=== PATIENT | female | born 1980 | race Asian ===

== ENCOUNTER 2020-05-02 10:02 | Inpatient (IN) | payer MEDICAID ==
[~2020-05-02] VITALS: Ht 142.2 cm; Wt 40.0 kg
[2020-05-02] MEDS ORDERED: ACETAMINOPHEN 500 MG TAB PO ONE (10:15)
[2020-05-02] MEDS ORDERED: SODIUM CHLORIDE 0.9% 1,000 ML IV ONE ×4 (10:30→18:00)
[2020-05-02 10:56] LABS: Urine Bacteria FEW /hpf (None Seen); Urine Blood TRACE /uL (Negative); Urine Mucus FEW (None Seen); Urine WBC 112 /hpf (0 - 5)
[2020-05-02 11:23] LABS: Albumin 2.6 g/dL (3.4-5.0); Calcium 7.3 mg/dL (8.5-10.1)
[2020-05-02 11:26] LABS: Basophils # (auto) 0 10 ^3/uL (0-0.2); Basophils % (auto) 0.2 % (0.0-2.0); Eosinophils # (auto) 0 10 ^3/uL (0-0.8); Hematocrit 36.2 % (36.0-46.0); Hemoglobin 12.4 g/dL (12.2-16.2); Lymphocytes # (auto) 0.4 10 ^3/uL (0.4-5.4); Lymphocytes % (auto) 3.3 % (10.0-50.0); Mean Corpuscular Hemoglobin 31.9 pg (28.0-32.0); Mean Corpuscular Hgb Conc. 34.2 g/dL (32.0-36.0); Mean Corpuscular Volume 93.1 fL (80.0-100.0); Monocytes % (auto) 9.9 % (0.0-12.0); Neutrophils # (auto) 9.1 10 ^3/uL (1.6-8.6); Neutrophils % (auto) 86.6 % (37.0-80.0); Platelet Count (auto) 110 10^3/uL (140-450); Red Blood Cells 3.89 10^6/uL (4.0-5.20); Red Cell Distribution Width 12.2 % (11.8-14.3); White Blood Cell 10.5 10^3/uL (4.4-10.8)
[2020-05-02 11:27] LABS: BUN/Creatinine Ratio 15.8; Bilirubin, Total 1.1 mg/dL (0.2-1.0); Total Protein 6.9 g/dL (6.4-8.2)
[2020-05-02 11:30] LABS: Potassium 2.9 mmol/L (3.5-5.1)
[2020-05-02] MEDS ORDERED: KETOROLAC TROMETH 30 MG/ML 1ML VIAL IV ONE (12:00)
[2020-05-02] MEDS ORDERED: cefTRIAXone 1GM/50ML D5W 50 ML IV ONE (12:00)
[2020-05-02] MEDS ORDERED: POTASSIUM CHLORIDE 20 MEQ, LIDOCAINE 1% (LOCAL ANESTH.) 2 ML in SODIUM CHL 0.9% 100 ML IV ONE (12:00)
[2020-05-02] MEDS ORDERED: MORPHINE SULF INJ 2 MG/ML SYRINGE 1ML IV PRN (18:00)
[2020-05-02] MEDS ORDERED: NITROGLYCERIN 0.4 MG SL TAB SL PRN (18:00)
[2020-05-02] MEDS: ONDANSETRON HCL 4 MG/2 ML VIAL IV PRN (18:28)
[2020-05-02] MEDS: MORPHINE SULF INJ 2 MG/ML SYRINGE 1ML IV PRN (18:28)
[2020-05-02] MEDS: levoFLOXacin 500MG 100 ML IV SCH (18:28)
[2020-05-02] MEDS ORDERED: POTASSIUM CHL 20MEQ/100ML 100 ML IV ONE (23:00)
[2020-05-02] MEDS: HYDROcodone-ACET 5/325MG TAB PO PRN (23:53)
[2020-05-03] MEDS: MORPHINE SULF INJ 2 MG/ML SYRINGE 1ML IV PRN (01:03)
[2020-05-03] MEDS: ONDANSETRON HCL 4 MG/2 ML VIAL IV PRN (01:03)
[2020-05-03] MEDS ORDERED: SODIUM CHLORIDE 0.9% 1,000 ML IV ONE (06:00)
[2020-05-03 07:06] LABS: Potassium 3.6 mmol/L (3.5-5.1)
[2020-05-03 07:13] LABS: Albumin 2.2 g/dL (3.4-5.0); BUN/Creatinine Ratio 14.8; Bilirubin, Total 0.7 mg/dL (0.2-1.0); Calcium 7.1 mg/dL (8.5-10.1); Total Protein 5.9 g/dL (6.4-8.2)
[2020-05-03] MEDS: ACETAMINOPHEN 325 MG TAB PO PRN ×2 (09:25→14:28)
[2020-05-03] MEDS: levoFLOXacin 500MG 100 ML IV SCH (10:04)
[2020-05-03 18:47] VITALS: BP 109/72
[2020-05-03] MEDS ORDERED: LEVO500T31 PO (19:44)
[2020-05-03] MEDS: HYDROcodone-ACET 5/325MG TAB PO PRN (19:50)
[2020-05-03 21:46] VITALS: BP 104/64
[2020-05-04 05:00] VITALS: BP 110/87
[2020-05-04] MEDS: HYDROcodone-ACET 5/325MG TAB PO PRN (06:20)
[2020-05-04 08:00] VITALS: BP 102/61
[2020-05-04 09:00] VITALS: BP 102/61
[2020-05-04] MEDS: levoFLOXacin 500MG 100 ML IV SCH (09:53)
[2020-05-04 11:05] VITALS: BP 102/61
== END 2020-05-04 12:38 | disposition home or self-care (01) | DRG 463 ==
LOC: ER 10:02 → TELE 18:02 → TELE-CENTR 05-03 18:42
PROVIDERS: ADMIT Internal Medicine; ATTEND Internal Medicine
DX: N10 Acute pyelonephritis (principal); E87.6 Hypokalemia; Z20.822 Contact with and (suspected) exposure to COVID-19; Z87.891 Personal history of nicotine dependence; I87.8 Other specified disorders of veins
CPT/HCPCS: 36415; 71045; 74176; 80053; 81001; 81025; 82962; 85025; 87040; 87086; 87426; 96361; 96365; 96375; G0378; J0696; J1885; J1956; J2001; J2405; J3480

== ENCOUNTER → 2022-08-06 | Emergency (ER) | payer MEDICAID ==
[~2022-08-06] MED LIST: LEVO500T31 PO; NAPR-746 PO
== END | disposition left against medical advice (07) ==
LOC: ER 21:48
DX: N93.9 Abnormal uterine and vaginal bleeding, unspecified (principal); Z53.21 Procedure and treatment not carried out due to patient leaving prior to being seen by health care provider

== ENCOUNTER 2022-08-07 06:18 | Emergency (ER) | payer MEDICAID ==
[~2022-08-07] VITALS: Ht 152.4 cm; Wt 43.4 kg
[~2022-08-07 06:18] MED LIST changes: -NAPR-746 PO
[2022-08-07 07:02] LABS: Basophils # (auto) 0.1 10 ^3/uL (0-0.2); Basophils % (auto) 1.1 % (0.0-2.0); Eosinophils # (auto) 0.5 10 ^3/uL (0-0.8); Eosinophils % (auto) 7.8 % (0.0-7.0); Hematocrit 39.1 % (36.0-46.0); Hemoglobin 13.6 g/dL (12.2-16.2); Lymphocytes # (auto) 2.2 10 ^3/uL (0.4-5.4); Lymphocytes % (auto) 36.5 % (10.0-50.0); Mean Corpuscular Hemoglobin 32.1 pg (28.0-32.0); Mean Corpuscular Hgb Conc. 34.7 g/dL (32.0-36.0); Mean Corpuscular Volume 92.6 fL (80.0-100.0); Monocytes # (auto) 0.5 10 ^3/uL (0-1.3); Monocytes % (auto) 7.8 % (0.0-12.0); Neutrophils # (auto) 2.8 10 ^3/uL (1.6-8.6); Neutrophils % (auto) 46.8 % (37.0-80.0); Nucleated Red Blood Cells % 0.2 %; Red Blood Cells 4.22 10^6/uL (4.0-5.20); Red Cell Distribution Width 12.5 % (11.8-14.3); White Blood Cell 5.9 10^3/uL (4.4-10.8)
[2022-08-07 07:22] LABS: BUN/Creatinine Ratio 17.4 (10.0-20.0); Calcium 8.4 mg/dL (8.5-10.1); Potassium 3.8 mmol/L (3.5-5.1)
[2022-08-07 07:23] VITALS: BP 122/77
[2022-08-07 08:37] LABS: Urine Bacteria NONE SEEN /hpf (None Seen); Urine Blood 3+ /uL (Negative); Urine Specific Gravity 1.021 (1.001-1.035); Urine WBC 1 /hpf (0 - 5)
[2022-08-07] MEDS ORDERED: NAPR-746 PO (09:20)
== END 2022-08-07 09:25 | disposition home or self-care (01) ==
LOC: ER 06:18
DX: N83.201 Unspecified ovarian cyst, right side (principal); N92.0 Excessive and frequent menstruation with regular cycle
CPT/HCPCS: 36415; 76856; 80048; 81001; 81025; 85025

== ENCOUNTER 2023-10-31 11:46 | Inpatient (IN) | payer MEDICAID ==
[~2023-10-31] VITALS: Ht 152.4 cm; Wt 47.4 kg
[~2023-10-31 11:46] MED LIST changes: +CIPR-173 PO; +NAPR-746 PO
[2023-10-31 12:38] LABS: Basophils # (auto) 0 10 ^3/uL (0-0.2); Basophils % (auto) 0.2 % (0.0-2.0); Eosinophils # (auto) 0 10 ^3/uL (0-0.8); Eosinophils % (auto) 0.1 % (0.0-7.0); Hematocrit 41.1 % (36.0-46.0); Hemoglobin 14.2 g/dL (12.2-16.2); Lymphocytes # (auto) 0.7 10 ^3/uL (0.4-5.4); Lymphocytes % (auto) 8.3 % (10.0-50.0); Mean Corpuscular Hemoglobin 30.9 pg (28.0-32.0); Mean Corpuscular Hgb Conc. 34.5 g/dL (32.0-36.0); Mean Corpuscular Volume 89.6 fL (80.0-100.0); Monocytes # (auto) 0.9 10 ^3/uL (0-1.3); Monocytes % (auto) 11.3 % (0.0-12.0); Neutrophils # (auto) 6.5 10 ^3/uL (1.6-8.6); Neutrophils % (auto) 80.1 % (37.0-80.0); Platelet Count (auto) 165 10^3/uL (140-450); Red Blood Cells 4.59 10^6/uL (4.0-5.20); Red Cell Distribution Width 13.2 % (11.8-14.3); White Blood Cell 8.1 10^3/uL (4.4-10.8)
[2023-10-31 12:46] LABS: Chloride 104 mmol/L (98-107); Potassium 3.7 mmol/L (3.5-5.1); Sodium 136 mmol/L (136-145)
[2023-10-31 12:47] LABS: Anion Gap 6 (5-15); Calcium 9.2 mg/dL (8.7-10.4); Carbon Dioxide 26 mmol/L (20-30)
[2023-10-31 12:52] LABS: BUN/Creatinine Ratio 11.3 (10.0-20.0); Blood Urea Nitrogen 9 mg/dL (9-23); Glucose 91 mg/dL (74-106)
[2023-10-31] MEDS: ENOXAPARIN SOD 60 MG/0.6 ML SYRINGE SC ONE (13:00)
[2023-10-31 13:26] LABS: Urine Bacteria FEW /hpf (None Seen); Urine Blood TRACE /uL (Negative); Urine Clarity Clear (Clear); Urine Color Light-Yellow (Yellow); Urine Protein, UAD Negative (Negative); Urine Specific Gravity 1.006 (1.001-1.035); Urine Urobilinogen Normal (Negative); Urine WBC 2 /hpf (0 - 5); Urine pH 6.5 (5.0-9.0)
[2023-10-31] MEDS: IOHEXOL 350 MG/ML 100ML IJ ONE (13:39)
[2023-10-31 15:24] VITALS: PULSE 88; RESP 18; O2SAT 98
[2023-11-01] VITALS (7 sets, daily range): BP systolic 94–108; BP diastolic 55–67; PULSE 62–98; RESP 14–17; TEMP 98–98.8; O2SAT 94–100
[2023-11-01] MEDS ORDERED: ONDANSETRON HCL 4 MG/2 ML VIAL IV PRN (03:30)
[2023-11-01] MEDS ORDERED: HYDROcodone-ACET 5/325MG TAB PO PRN (03:30)
[2023-11-01] MEDS: PANTOPRAZOLE 40 MG TAB PO SCH (06:40)
[2023-11-01 06:58] LABS: Basophils # (auto) 0 10 ^3/uL (0-0.2); Basophils % (auto) 0.2 % (0.0-2.0); Eosinophils # (auto) 0 10 ^3/uL (0-0.8); Eosinophils % (auto) 0.1 % (0.0-7.0); Hematocrit 37.9 % (36.0-46.0); Hemoglobin 12.9 g/dL (12.2-16.2); Lymphocytes # (auto) 1.4 10 ^3/uL (0.4-5.4); Lymphocytes % (auto) 19.2 % (10.0-50.0); Mean Corpuscular Hemoglobin 30.7 pg (28.0-32.0); Mean Corpuscular Hgb Conc. 34.1 g/dL (32.0-36.0); Mean Corpuscular Volume 90.1 fL (80.0-100.0); Monocytes # (auto) 1.3 10 ^3/uL (0-1.3); Monocytes % (auto) 17.8 % (0.0-12.0); Neutrophils # (auto) 4.5 10 ^3/uL (1.6-8.6); Neutrophils % (auto) 62.7 % (37.0-80.0); Nucleated Red Blood Cells % 0.3 %; Platelet Count (auto) 150 10^3/uL (140-450); Red Cell Distribution Width 13.1 % (11.8-14.3); White Blood Cell 7.1 10^3/uL (4.4-10.8)
[2023-11-01 07:13] LABS: Alanine Aminotransferase 20 U/L (7-40); Albumin 4.1 g/dL (3.2-4.8); Alkaline Phosphatase 50 U/L (46-116); Anion Gap 7 (5-15); Blood Urea Nitrogen 10 mg/dL (9-23); Calcium 8.8 mg/dL (8.7-10.4); Carbon Dioxide 28 mmol/L (20-30); Chloride 102 mmol/L (98-107); Glucose 103 mg/dL (74-106); Potassium 3.8 mmol/L (3.5-5.1); Sodium 137 mmol/L (136-145)
[2023-11-01 07:14] LABS: Aspartate Aminotransferase 16 U/L (13-40); BUN/Creatinine Ratio 13.7 (10.0-20.0); Bilirubin, Total 0.9 mg/dL (0.2-1.0); Total Protein 7.5 g/dL (5.7-8.2)
[2023-11-01] MEDS: ACETAMINOPHEN 325 MG TAB PO PRN (17:53)
[2023-11-01 20:59] LABS: COVID19 ANTIGEN SOFIA FIA NEGATIVE (NEGATIVE)
[2023-11-02] VITALS (8 sets, daily range): BP systolic 94–112; BP diastolic 57–77; PULSE 62–83; RESP 16–18; TEMP 97.4–99.3; O2SAT 97–99
[2023-11-02 07:15] LABS: INR 1.03 (0.9-1.15); Prothrombin Time 10.9 sec (9.3-11.8)
[2023-11-02 07:23] LABS: Chloride 105 mmol/L (98-107); Potassium 3.8 mmol/L (3.5-5.1); Sodium 137 mmol/L (136-145)
[2023-11-02 07:24] LABS: Anion Gap 5 (5-15); Calcium 8.9 mg/dL (8.7-10.4); Carbon Dioxide 27 mmol/L (20-30)
[2023-11-02 07:29] LABS: BUN/Creatinine Ratio 14.3 (10.0-20.0); Blood Urea Nitrogen 10 mg/dL (9-23); Glucose 95 mg/dL (74-106)
[2023-11-03] VITALS (10 sets, daily range): BP systolic 90–114; BP diastolic 53–69; PULSE 56–80; RESP 16–18; TEMP 97.7–98.5; O2SAT 96–100
[2023-11-03 07:42] LABS: Basophils # (auto) 0 10 ^3/uL (0-0.2); Basophils % (auto) 0.4 % (0.0-2.0); Eosinophils # (auto) 0.1 10 ^3/uL (0-0.8); Eosinophils % (auto) 1.2 % (0.0-7.0); Hematocrit 39.6 % (36.0-46.0); Hemoglobin 13.5 g/dL (12.2-16.2); Lymphocytes # (auto) 1.2 10 ^3/uL (0.4-5.4); Lymphocytes % (auto) 26.7 % (10.0-50.0); Mean Corpuscular Hemoglobin 30.7 pg (28.0-32.0); Monocytes # (auto) 0.6 10 ^3/uL (0-1.3); Monocytes % (auto) 12.5 % (0.0-12.0); Neutrophils # (auto) 2.7 10 ^3/uL (1.6-8.6); Neutrophils % (auto) 59.2 % (37.0-80.0); Platelet Count (auto) 204 10^3/uL (140-450); Red Blood Cells 4.39 10^6/uL (4.0-5.20); Red Cell Distribution Width 13.1 % (11.8-14.3); White Blood Cell 4.6 10^3/uL (4.4-10.8)
[2023-11-03 07:58] LABS: Alanine Aminotransferase 23 U/L (7-40); Albumin 3.9 g/dL (3.2-4.8); Alkaline Phosphatase 50 U/L (46-116); Anion Gap 5 (5-15); BUN/Creatinine Ratio 10.8 (10.0-20.0); Blood Urea Nitrogen 8 mg/dL (9-23); Calcium 8.8 mg/dL (8.7-10.4); Carbon Dioxide 28 mmol/L (20-30); Chloride 104 mmol/L (98-107); Glucose 95 mg/dL (74-106); LDL Cholesterol 168 mg/dL (< 100); Magnesium 2.4 mg/dL (1.6-2.6); Potassium 3.6 mmol/L (3.5-5.1); Sodium 137 mmol/L (136-145); Total Protein 7.3 g/dL (5.7-8.2); Triglycerides 87 mg/dL (< 150)
[2023-11-03 07:59] LABS: Aspartate Aminotransferase 21 U/L (13-40); Bilirubin, Total 0.7 mg/dL (0.2-1.0); Cholesterol 208 mg/dL (< 200); HDL Cholesterol 33 mg/dL (40-59); Phosphorus 3.5 mg/dL (2.4-5.1)
[2023-11-03] MEDS ORDERED: SODIUM CHLORIDE LOCK 10 ML ONE (08:27)
[2023-11-03] MEDS: LIDOCAINE VISCOUS 2% 15ML UD ONE (14:21)
[2023-11-03] MEDS: diphenhdrAMINE HCL 50 MG/1 ML VL ONE (14:26)
[2023-11-03] MEDS: MIDAZOLAM HCL 5 MG/ML-1ML VIAL ONE (14:26)
[2023-11-03] MEDS: fentaNYL CITRATE 100 MCG/2 ML VL ONE (14:26)
[2023-11-03] MEDS: SUCRALFATE 1 GM TAB PO SCH (22:46)
[2023-11-04 01:00] VITALS: BP 102/60; PULSE 62; RESP 18; TEMP 97.9; O2SAT 98
[2023-11-04 05:00] VITALS: BP 95/56; PULSE 66; RESP 16; TEMP 98.4; O2SAT 95
[2023-11-04 07:12] LABS: Basophils # (auto) 0 10 ^3/uL (0-0.2); Basophils % (auto) 0.4 % (0.0-2.0); Eosinophils # (auto) 0.1 10 ^3/uL (0-0.8); Eosinophils % (auto) 1.4 % (0.0-7.0); Hematocrit 36.2 % (36.0-46.0); Hemoglobin 12.5 g/dL (12.2-16.2); Lymphocytes # (auto) 1.3 10 ^3/uL (0.4-5.4); Lymphocytes % (auto) 21.6 % (10.0-50.0); Mean Corpuscular Hemoglobin 30.6 pg (28.0-32.0); Mean Corpuscular Hgb Conc. 34.5 g/dL (32.0-36.0); Mean Corpuscular Volume 88.8 fL (80.0-100.0); Monocytes # (auto) 0.6 10 ^3/uL (0-1.3); Monocytes % (auto) 9.1 % (0.0-12.0); Neutrophils # (auto) 4.2 10 ^3/uL (1.6-8.6); Neutrophils % (auto) 67.5 % (37.0-80.0); Platelet Count (auto) 216 10^3/uL (140-450); Red Blood Cells 4.07 10^6/uL (4.0-5.20); Red Cell Distribution Width 12.9 % (11.8-14.3); White Blood Cell 6.2 10^3/uL (4.4-10.8)
[2023-11-04 07:23] LABS: Anion Gap 4 (5-15); Carbon Dioxide 27 mmol/L (20-30); Chloride 106 mmol/L (98-107); Potassium 3.9 mmol/L (3.5-5.1); Sodium 137 mmol/L (136-145)
[2023-11-04 07:24] LABS: Calcium 8.6 mg/dL (8.7-10.4)
[2023-11-04 07:29] LABS: BUN/Creatinine Ratio 10.3 (10.0-20.0); Blood Urea Nitrogen 7 mg/dL (9-23); Glucose 93 mg/dL (74-106)
[2023-11-04 08:00] VITALS: PULSE 68; RESP 16; O2SAT 99
[2023-11-04 09:00] VITALS: BP 104/70; PULSE 68; RESP 18; TEMP 98.4; O2SAT 99
[2023-11-04 12:33] VITALS: BP 104/70; PULSE 65; RESP 15; TEMP 36.9; O2SAT 98
[2023-11-04 12:48] VITALS: BP 94/62; PULSE 65; RESP 15; TEMP 97.8; O2SAT 98
[2023-11-04] MEDS: CALCIUM CARB 500 MG CHEW TAB PO ONE (12:50)
[2023-11-04] MEDS ORDERED: ACET-1882 PO (12:59)
[2023-11-04] MEDS ORDERED: PANT40T PO (12:59)
[2023-11-04] MEDS ORDERED: SUCR1TAB PO (12:59)
[2023-11-04] MEDS ORDERED: ERGO1CAP23 PO (18:23)
[2023-11-04] MEDS ORDERED: CALC0.25 PO (18:28)
== END 2023-11-04 14:15 | disposition home or self-care (01) | DRG 254 ==
LOC: ER 11:46 → OVERFLOW 11-01 03:30 → WEST WING 11-01 06:00
PROVIDERS: ADMIT Internal Medicine Pulmonary Disease; ATTEND Internal Medicine Pulmonary Disease
PROC: 0DB68ZX Excision of Stomach, Via Natural or Artificial Opening Endoscopic, Diagnostic (ICD-10-PCS; 2023-11-03)
PROC: 0DB48ZX Excision of Esophagogastric Junction, Via Natural or Artificial Opening Endoscopic, Diagnostic (ICD-10-PCS; 2023-11-03)
PROC: 0DB98ZX Excision of Duodenum, Via Natural or Artificial Opening Endoscopic, Diagnostic (ICD-10-PCS; principal; 2023-11-03 13:35)
DX: K44.9 Diaphragmatic hernia without obstruction or gangrene (principal); K22.10 Ulcer of esophagus without bleeding; K29.70 Gastritis, unspecified, without bleeding; E78.5 Hyperlipidemia, unspecified; Z79.899 Other long term (current) drug therapy
CPT/HCPCS: 36415; 71275; 74176; 76705; 80048; 80053; 80061; 81001; 83735; 84100; 84484; 84702; 85025; 85379; 85610; 86850; 86900; 86901; 87426; 93005; G0378; J2250

== ENCOUNTER 2024-07-08 13:51 | Inpatient (IN) | payer MEDICAID ==
[~2024-07-08] VITALS: Ht 152.4 cm; Wt 52.1 kg
[~2024-07-08 13:51] MED LIST changes: +ACET-1882 PO; +CALC0.25 PO; -CIPR-173 PO; +ERGO1CAP23 PO; -LEVO500T31 PO; -NAPR-746 PO; +PANT40T PO; +SUCR1TAB PO
[2024-07-08] MEDS ORDERED: cefTRIAXone 1GM/50ML D5W 50 ML IV ONE (14:00)
[2024-07-08 14:15] LABS: Basophils # (auto) 0 10 ^3/uL (0-0.2); Basophils % (auto) 0.9 % (0.0-2.0); Eosinophils # (auto) 0.1 10 ^3/uL (0-0.8); Eosinophils % (auto) 2.1 % (0.0-7.0); Hematocrit 26.1 % (36.0-46.0); Hemoglobin 7.7 g/dL (12.2-16.2); Lymphocytes % (auto) 39.1 % (10.0-50.0); Mean Corpuscular Hgb Conc. 29.7 g/dL (32.0-36.0); Mean Corpuscular Volume 60.8 fL (80.0-100.0); Monocytes # (auto) 0.2 10 ^3/uL (0-1.3); Monocytes % (auto) 8.2 % (0.0-12.0); Neutrophils # (auto) 1.3 10 ^3/uL (1.6-8.6); Neutrophils % (auto) 49.7 % (37.0-80.0); Nucleated Red Blood Cells % 0.1 %; Platelet Count (auto) 188 10^3/uL (140-450); White Blood Cell 2.6 10^3/uL (4.4-10.8)
--- NOTE | 2024-07-08 14:26 | ED.PDOC ---
GI ASSESSMENT HPI Comments 43-year-old female is brought in by ambulance with son for complaint of syncope, constant, diffuse abdominal pain, nausea, and diarrhea. Patient is a poor historian and a Swedish speaker. Per son, who is translating on patient's behalf, patient is stated to have had yellow diarrhea for one-week and remaining GI symptoms for the past few days, with most recent onset taking place, while at a restaurant, this afternoon. She then had a syncopal episode that was witnessed by family after going home, when she stood up and sat back down in her seat. Per EMS, patient vomited in the ambulance and was given IV Zofran. She has not vomited and since Denies any blood in vomitus, diarrhea, Vitals on scene: blood glucose of 173, blood pressure of 135/74, pulse rate of 68, respiratory rate of 13, and SpO2 of 100% room air Vitals upon arrival to ED: Temperature of 95.8 F, blood pressure 136/73, pulse rate of 65, respiratory rate of 12, and SpO2 of 100% room air. ORTEGA: n/v/syncope, abd pain diarrhea HPI: Poor Historian. Past Medical History: Denies Past Surgical History: Denies REVIEW OF SYSTEMS: CONSTITUTIONAL: Denies acute: fever, diaphoresis, chills, HEAD: Denies acute: headache, photophobia Eyes: Denies acute: Double vision, vision loss, eye pain, eye discharge. EARS: Denies acute: tinnitus, hearing loss, ear discharge, ear pain, THROAT: Denies acute: sore throat, swelling, difficulty swallowing , pain with sw allowing, change in voice. NECK: Denies acute: neck pain, neck swelling, stiff neck. HEART: Denies acute : chest pain, palpitations, LUNGS: Denies acute: SOB, wheezing, cough, hemoptysis ABDOMEN: Denies acute: melena , hematemesis, hematochezia SKIN: Denies acute: rash, redness, lesions, itchiness. EXTREMITIES: Denies acute: calf pain, numbness, tingling, weakness, denies pain in extremity. Denies acute: Low back pain. Neuro: Denies acute: focal neurological deficit, motor or sensory focal neurological deficit, tremors, seizure like activity, confusion, , change in mental status, loss of bowel or bladder function, cauda equina like symptoms. : Denies acute: dysuria, hematuria, flank pain, increasing urinary frequency PSYCH: Denies acute: hallucination, suicidal ideation, homicidal ideation. FEMALE: Denies acute: abnormal vaginal bleeding, foul odor, unusual discharge. PHYSICAL EXAM: General: ----mild----acute distress, awake and alert. Head: normocephalic, atraumatic. Neck: supple, trachea is midline, no swelling. Throat: Normal phonation. Eyes:, no erythema, no purulent discharge, no proptosis, no icterus. Heart: regular rate, regular rhythm, no significant murmur appreciated. Lungs: no apparent respiratory distress, Able to speak in full sentences. No wheezing, no rhonchi, no crackles. No stridors Clear to auscultation bilaterally. Abdomen: Nonspecific lower abdominal tender to palpation, non distended, soft, no guarding, no rebound, + bowel sounds. Neuro: Awake, Alert, oriented to name, self, situation, follows commands GCS=15. Speech is normal. Skin: no petechia, no purpura, no cyanosis, non-pale, not jaundice. Lower extremities: --no - Pitting edema no deformity, no focal swelling, no calf TTP. Makes eye contact. moves all four extremities. Face: no apparent facial droop. ED COURSE: Chief Complaint: Syncope Time Seen by MD: 13:52 Reviewed Notes: Nurses Notes, Allergies Allergies: Coded Allergies: NO KNOWN ALLERGIES (Unverified , 05/12/18) Home Meds Active Scripts Calcitriol (Calcitriol) 0.25 Mcg Cap, 1 CAP PO DAILY for 30 Days, #30 CAP 5 Refills Prov:REBECCAREBECCACLAUDY SEGAL RESIDENT 11/04/23 Ergocalciferol (VITAMIN D 26436 UNIT) 50,000 [place], [address] UNIT PO QWEEKLY for 30 Days, #10 CAP Prov:MEGHANAALICIAPITERCLAUDY RESIDENT 11/04/23 Sucralfate (Sucralfate) 1 Gm Tab, 1 GM PO BID for 30 Days, #60 TAB Prov:CLAUDY BRYANT RESIDENT 11/04/23 Pantoprazole Sodium Sesquihydr (Pantoprazole Sodium) 40 Mg Tab, 40 MG PO DAILY@0600 for 30 Days, #30 TAB Prov:CLAUDY BRYANT RESIDENT 11/04/23 Acetaminophen (Acetaminophen) 325 Mg Tab, 650 MG PO Q6HP PRN for 10 Days, #80 TAB Prov:CLAUDY BRYANT RESIDENT 11/04/23 Information Source: Patient, Relative Past Medical History PAST MEDICAL HISTORY: Denies Surgical History: Denies all surgeries FURNACE UTILITY OPERATOR History: No Pertinent FURNACE UTILITY OPERATOR History Family History Family History: Reviewed,noncontributory to illness Social History Smoker: Non-Smoker Alcohol: Denies ETOH Use Drugs: Denies Drug Use Lives In: Home Was a procedure done? Was a procedure done?: No GI differential Dx Differential Diagnosis: Other (DDX include Diverticulitis, colitis, gastroenteritis, acute abdomen, SBO, enteritis, constipation, volvulus, appendicitis, Gallbladder disease, choledocolithiasis, ascending cholangitis, pancreatitis, intraAbdominal mass/neoplasm, hepatitis, UTI, pylonephritis, kidney stone, aneurysm, dissection, Inflammatory bowel disease, gastroparesis, ischemic bowel, ovarian torsion, ovarian cyst/mass, tubo-ovarian abscess, , ectopic , PID, STD.) X-Ray, Labs, Meds, VS Vital Signs Date Time Temp Pulse Resp B/P (MAP) Pulse Ox O2 Delivery O2 Flow Rate FiO2 07/08/24 20:50 98.5 60 14 115/38 (63) 100 98.5 07/08/24 16:06 97.9 65 18 109/57 (74) 94 97.9 07/08/24 16:01 65 18 94 Room Air* 0 21 Lab Test 07/08/24 18:59 07/08/24 17:20 07/08/24 16:00 07/08/24 15:09 Range/Units Hemoglobin 7.7 L 12.2-16.2 g/dL Hematocrit 26.7 L 36.0-46.0 % Troponin I High Sensitivity < 3 L < 3 L </=34 ng/L Urine Color Light-yellow Yellow Urine Clarity Clear Clear Urine pH 6.0 5.0-9.0 Urine Specific Morris 1.019 1.001-1.035 Urine Protein Negative Negative Urine Ketones Negative Negative Urine Blood 2+ H Negative /uL Urine Nitrite Negative Negative Urine Bilirubin Negative Negative Urine Urobilinogen Normal Negative mg/dL Urine Leukocyte Esterase Negative Negative /uL Urine RBC 2 0 - 4 /hpf Urine Microscopic WBC 2 0-5 /HPF Urine Squamous Epithelial Cells Few <5 /hpf Urine Bacteria None seen None Seen /hpf Urine Mucus Few None Seen Urine Glucose 3+ H Normal mg/dL Urine Test Negative Negative Test 07/08/24 14:06 Range/Units White Blood Count 2.6 L 4.4-10.8 10^3/uL Red Blood Count 4.30 4.0-5.20 10^6/uL Hemoglobin 7.7 L 12.2-16.2 g/dL Hematocrit 26.1 L 36.0-46.0 % Mean Corpuscular Volume 60.8 L 80.0-100.0 fL Mean Corpuscular Hemoglobin 18.0 L 28.0-32.0 pg Mean Corpuscular Hemoglobin Concent 29.7 L 32.0-36.0 g/dL Red Cell Distribution Width 19.0 H 11.8-14.3 % Platelet Count 188 140-450 10^3/uL Mean Platelet Volume 8.4 6.9-10.8 fL Neutrophils (%) (Auto) 49.7 37.0-80.0 % Lymphocytes (%) (Auto) 39.1 10.0-50.0 % Monocytes (%) (Auto) 8.2 0.0-12.0 % Eosinophils (%) (Auto) 2.1 0.0-7.0 % Basophils (%) (Auto) 0.9 0.0-2.0 % Neutrophils # (Auto) 1.3 L 1.6-8.6 10 ^3/uL Lymphocytes # (Auto) 1.0 0.4-5.4 10 ^3/uL Monocytes # (Auto) 0.2 0-1.3 10 ^3/uL Eosinophils # (Auto) 0.1 0-0.8 10 ^3/uL Basophils # (Auto) 0 0-0.2 10 ^3/uL Nucleated Red Blood Cells 0.1 % Sodium Level 141 136-145 mmol/L Potassium Level 3.3 L 3.5-5.1 mmol/L Chloride Level 108 H 98-107 mmol/L Carbon Dioxide Level 25 20-31 mmol/L Anion Gap 8 5-15 Blood Urea Nitrogen 12 9-23 mg/dL Creatinine 0.87 0.550-1.02 mg/dL Glomerular Filtration Rate Calc 84 >90 mL/min BUN/Creatinine Ratio 13.8 10.0-20.0 Serum Glucose 208 H 74-106 mg/dL Hemoglobin A1c 5.4 <5.7 % A1C Lactic Acid Level 1.9 0.4-2.0 mmol/L Calcium Level 8.7 8.7-10.4 mg/dL Magnesium Level 2.2 1.6-2.6 mg/dL Total Bilirubin 0.4 0.2-1.0 mg/dL Aspartate Amino Transferase (AST) 12 L 13-40 U/L Alanine Aminotransferase (ALT) 13 7-40 U/L Alkaline Phosphatase 45 L 46-116 U/L Troponin I High Sensitivity < 3 L </=34 ng/L Total Protein 7.1 5.7-8.2 g/dL Albumin 4.3 3.2-4.8 g/dL Lipase 78 H 12-53 U/L Current Medications Medications (Trade) Dose Ordered Sig/Noris Route Start Time Stop Time Status Last Admin Sodium Chloride 1,000 ml @ 1,000 mls/hr Q1H ONCE IV 07/08/24 14:00 07/08/24 14:59 DC 07/08/24 15:53 Ondansetron HCl (Zofran) 8 mg ONCE ONCE IV 07/08/24 14:00 07/08/24 14:01 DC 07/08/24 15:54 Metronidazole 100 ml @ 100 mls/hr ONCE ONCE IV 07/08/24 14:30 07/08/24 15:29 DC 07/08/24 15:54 [place] [address] Ph: [phone] DIAGNOSTIC IMAGING Diagnostic Imaging Report : [id number] Signed PATIENT: LEVY ORTEGA ACCT: [id number] UNIT: [id number] : 1980 LOC: ER ROOM / BED: / AGE / SEX: 43 / F ADM STATUS: REG ER SERVICE [id number] ORDERING PHYSICIAN: DARRYL KHAN DO PROCEDURE(s): ABPL - CT AB PEL WO CON-NO ORAL OR IV REASON: n/v/syncope abd pain ORDER NUMBER(s): [id number], ACCESSION NUMBER(s): [id number] Exam: CT CT AB PEL WO CON-NO ORAL OR IV History: n/v/syncope abd pain Comparison Study: None available at time of dictation. TECHNIQUE: Multidetector CT of the abdomen was performed from lung bases to pubic symphysis. Imaging was performed without IV contrast. Axial, coronal and sagittal multiplanar reformats were obtained from the axial data set by the technologist. Radiation Dose Information: CT Dose: CTDI volume is 5.07 mGy. Dose-length product is 247.05 mGy*cm FINDINGS: Evaluation of solid organs is limited due to lack of intravenous contrast use. Findings: Lung Bases: No acute or significant lung base finding. Normal heart size. No pleural or pericardial effusion. Liver: The liver is normal in size. No focal lesions. Gallbladder and Biliary Tree: Unremarkable Spleen: Unremarkable Pancreas: The pancreas is grossly normal in appearance. Adrenal Glands: Unremarkable Kidneys: Kidneys are grossly normal without calculi or hydronephrosis. Bladder: Grossly unremarkable for degree of distention. Bowel: The stomach is grossly normal in appearance. Small bowel and colon are normal in caliber and distribution. The appendix is not visualized; however, no secondary findings of acute appendicitis identified. Ascites: Absent Lymphadenopathy: No mesenteric, retroperitoneal or periportal lymphadenopathy. Abdominal Wall and Mesentery: Unremarkable. Vasculature: The visualized abdominal aorta is normal in size and caliber. Evaluation of abdominal and pelvic vessels is limited due to lack of intravenous contrast. Pelvic Organs: Uterus measures 11.5 by 6.4 by 7.7 cm. Musculoskeletal: No aggressive focal bony lesions, acute fractures or dislocation. Soft tissues: Unremarkable IMPRESSION: 1. No findings of bowel obstruction 2. No calcified gallstones 3. No nephrolithiasis or hydronephrosis. 4. Prominent uterus measuring 11.5 by 6.4 x 7.7 cm. Radiation optimization: All CT scans at this facility use at least one of these dose optimization techniques: automated exposure control mA and/or kV adjustment per patient size (includes targeted exams where dose is matched to clinical indication) or iterative reconstruction. ATED BY: MARTHA CHRISTINA Jr., DO DICTATED DATE/TIME: 07/08/24 1720 SIGNED BY: MARTHA CHRISTINA Jr., DO SIGNED DATE/TIME: 07/08/24 1720 CC: Time of 1ST Reevaluation: 14:30 Reevaluation 1ST: Unchanged Time of 2ND Reevaluation: 21:56 Reevaluation 2ND: Improved Patient Education/Counseling: Diagnosis, Treatment Family Education/Counseling: Diagnosis, Treatment Comments Patient presented with the above HPI.---syncope/abdominal pain/diarrhea---workup was initiated. patient was found with the above mentioned diagnosis. the following medications were ordered: please refer to order lists of meds and tests obtained by myself Dr. Khan. Patient ED course and VS have been stabilized. Patient has been reassessed in [facility] ED and remained in a stable condition. Pertinent incidental findings were discussed with the patient and/or family. Patient/family voices understanding and is agreeable with plan. Patient has been observed in the ED adequate length of time to insure improvement/stability. Escalation of care considered: Consideration of escalation to observation or admission Stool studies are still pending. Antibiotics were initiated for history of diarrhea and suspected associated dehydration possible infectious diarrhea. Patient was ADMITTED to the medicine team for further evaluation and treatment of their presentation. All the reports of any imaging studies that were ordered by myself were reviewed by myself. Departure 1 Departure Time of Disposition: 18:49 Impression: Primary Impression: Syncope and collapse Additional Impressions: Abdominal pain Diarrhea Symptomatic anemia Disposition: ADMITTED INPATIENT Admit to: Tele Condition: Guarded Discharged With: Self Critical Care Note Critical Care Time?: Yes (35 min-critical care time only) I personally scribed for DARRYL KHAN DO ([email or web address]) on 07/08/24 at 14:26. Electronically submitted by Dave Uriarte ([email or web address]). I personally scribed for DARRYL KHAN DO ([email or web address]) on 07/08/24 at 15:30. Electronically submitted by Dave Uriarte ([email or web address]). I personally scribed for DARRYL KHAN DO ([email or web address]) on 07/08/24 at 15:44. Electronically submitted by Dave Uriarte ([email or web address]). I personally scribed for DARRYL KHAN DO ([email or web address]) on 07/08/24 at 16:31. Electronically submitted by Dave Uriarte ([email or web address]). I personally scribed for DARRYL KHAN DO ([email or web address]) on 07/08/24 at 18:39. Electronically submitted by Dave Uriarte ([email or web address]). DARRYL KHAN DO July 08, 2024 14:26
[2024-07-08 14:32] LABS: Alanine Aminotransferase 13 U/L (7-40); Albumin 4.3 g/dL (3.2-4.8); Anion Gap 8 (5-15); BUN/Creatinine Ratio 13.8 (10.0-20.0); Blood Urea Nitrogen 12 mg/dL (9-23); Carbon Dioxide 25 mmol/L (20-31); Magnesium 2.2 mg/dL (1.6-2.6); Sodium 141 mmol/L (136-145); Total Protein 7.1 g/dL (5.7-8.2)
[2024-07-08 14:33] LABS: Bilirubin, Total 0.4 mg/dL (0.2-1.0)
[2024-07-08 14:34] LABS: Alkaline Phosphatase 45 U/L (46-116); Aspartate Aminotransferase 12 U/L (13-40); Calcium 8.7 mg/dL (8.7-10.4); Chloride 108 mmol/L (98-107); Glucose 208 mg/dL (74-106); Lipase 78 U/L (12-53); Potassium 3.3 mmol/L (3.5-5.1)
[2024-07-08] MEDS: SODIUM CHLORIDE 0.9% 1,000 ML IV ONE (15:53)
[2024-07-08] MEDS: ONDANSETRON HCL 4 MG/2 ML VIAL IV ONE (15:54)
[2024-07-08] MEDS: metroNIDAZOLE 500MG/100ML 100 ML IV ONE (15:54)
[2024-07-08 16:01] VITALS: PULSE 65; RESP 18; O2SAT 94
[2024-07-08 16:28] LABS: Urine Bacteria None Seen /hpf (None Seen)
[2024-07-08 16:34] LABS: Urine Blood 2+ /uL (Negative); Urine Clarity Clear (Clear); Urine Color Light-Yellow (Yellow); Urine Mucus FEW (None Seen); Urine Protein, UAD Negative (Negative); Urine Specific Gravity 1.019 (1.001-1.035); Urine Squamous Epithelial Cell FEW /hpf (<5); Urine Urobilinogen Normal (Negative); Urine WBC 2 /HPF (0-5)
--- NOTE | 2024-07-08 17:23 | DVH ---
Exam: CT CT AB PEL WO CON-NO ORAL OR IV History: n/v/syncope abd pain Comparison Study: None available at time of dictation. TECHNIQUE: Multidetector CT of the abdomen was performed from lung bases to pubic symphysis. Imaging was performed without IV contrast. Axial, coronal and sagittal multiplanar reformats were obtained fr om the axial data set by the technologist. Radiation Dose Information: CT Dose: CTDI volume is 5.07 mGy. Dose-length product is 247.05 mGy*cm FINDINGS: Evaluation of solid organs is limited due to lack of intravenous contrast use. Findings: Lung Bases: No acute or significant lung base finding. Normal heart size. No pleural or pericardial effusion. Liver: The liver is normal in size. No focal lesions. Gallbladder and Biliary Tree: Unremarkable Spleen: Unremarkable Pancreas: The pancreas is grossly normal in appearance. Adrenal Glands: Unremarkable Kidneys: Kidneys are grossly normal without calculi or hydronephrosis. Bladder: Grossly unremarkable for degree of distention. Bowel: The stomach is grossly normal in appearance. Small bowel and colon are normal in caliber and d istribution. The appendix is not visualized; however, no secondary findings of acute appendicitis id entified. Ascites: Absent Lymphadenopathy: No mesenteric, retroperitoneal or periportal lymphadenopathy. Abdominal Wall and Mesentery: Unremarkable. Vasculature: The visualized abdominal aorta is normal in size and caliber. Evaluation of abdominal a nd pelvic vessels is limited due to lack of intravenous contrast. Pelvic Organs: Uterus measures 11.5 by 6.4 by 7.7 cm. Musculoskeletal: No aggressive focal bony lesions, acute fractures or dislocation. Soft tissues: Unremarkable IMPRESSION: 1. No findings of bowel obstruction 2. No calcified gallstones 3. No nephrolithiasis or hydronephrosis. 4. Prominent uterus measuring 11.5 by 6.4 x 7.7 cm. Radiation optimization: All CT scans at this facility use at least one of these dose optimization te chniques: automated exposure control mA and/or kV adjustment per patient size (includes targeted exa ms where dose is matched to clinical indication) or iterative reconstruction.
[2024-07-08 19:15] LABS: Hemoglobin 7.7 g/dL (12.2-16.2)
[2024-07-08 19:16] LABS: Hematocrit 26.7 % (36.0-46.0)
[2024-07-08] MEDS ORDERED: DOCUSATE SOD 100 MG CAP PO PRN (20:30)
[2024-07-08] MEDS ORDERED: HYDROcodone-ACET 5/325MG TAB PO PRN (20:30)
--- NOTE | 2024-07-08 21:29 | DVHHP2 ---
History of Present Illness Reason for Visit: Syncope and collapse History of Present Illness The patient is a 43-year-old female who denies past medical history presented to [facility] ED for evaluation of syncopal episode. Patient reports symptoms progressively get worse with diffuse abdominal pain, nausea, diarrhea, getting worse that prompted this visit. Patient is a poor historian and a [place] speaker.Per son, who is translating on patient's behalf, patient is stated to have had yellow diarrhea for one-week and remaining GI symptoms for the past few days, with most recent onset taking place, while at a restaurant, this afternoon. She then had a syncopal episode that was witnessed by family after going home, when she stood up and sat back down in her seat. Patient was seen and evaluated in the ED, laboratory data shows WBC 2.6, hemoglobin 7.7, hematocrit 26.1, platelets 188, sodium 141, potassium 3.3, BUN 12, creatinine 0.87, glucose 208, hemoglobin A1c 5.4, lipase 78, troponin < 3. Please see medication orders section in the computer. On my assessment, patient denied chest pain, no headache, no dizziness, no diaphoresis, no shortness of breath, no nausea or vomiting at this moment, no fever, no chills. Patient was admitted for further evaluation and medical management. Past Medical History Denies past medical history Past Surgical History Denies all surgeries Family History Reviewed, noncontributory to the management of this case. Past Social History The patient lives at home, denies smoking, alcohol or illicit drugs abuse. Review of Systems Constitutional: Yes: Weakness; No: Fever, Chills, Sweats, Malaise, Other Eyes: No: Pain, Vision change, Conjunctivae inflammation, Eyelid inflammation, Other, Redness Respiratory: No: Cough, Dry, Shortness of breath, SOB with excertion, Wheezing, Hemoptysis, Pleuritic Pain, Sputum, Wheezing, Other Cardiovascular: No: Chest Pain, Palpitations, Orthopnea, Paroxysmal Noc. Dyspnea, Edema, Lt Headedness, Other Gastrointestinal: Nausea, Abdominal Pain, Diarrhea; No: Vomiting, Constipation, Melena, Hematochezia, Other Genitourinary: No Dysuria, No Frequency, No Incontinence, No Hematuria, No Retention, No Other Musculoskeletal: No: other, neck pain, shoulder pain, arm pain, back pain, hand pain, leg pain, foot pain Skin: No: Rash, Lesions, Jaundice, Bruising, Other Neurological: No: Weakness, Numbness, Incoordination, Change in speech, Confusion, Seizures, Other Allergies: Coded Allergies: NO KNOWN ALLERGIES (Unverified , 05/12/18) Medications Current Medications Medications Dose Ordered Sig/Noris Route Start Time Stop Time Status Last Admin Dose Admin Ceftriaxone Sodium 50 ml @ 100 mls/hr DAILY@09 IV 07/09/24 09:00 UNV Pantoprazole Sodium 40 mg DAILY IV 07/09/24 10:00 UNV Sodium Chloride 10 ml Q8HR IV 07/08/24 22:00 UNV Acetaminophen/ Hydrocodone Bitart 1 tab Q4HP PRN PO 07/08/24 20:30 UNV Ondansetron HCl 4 mg Q4HP PRN IV 07/08/24 20:30 UNV Docusate Sodium 100 mg BIDPRN PRN PO 07/08/24 20:30 UNV Acetaminophen 650 mg Q6HP PRN PO 07/08/24 20:30 UNV Exam Vital Signs Vital Signs Date Time Temp Pulse Resp B/P (MAP) Pulse Ox O2 Delivery O2 Flow Rate FiO2 07/08/24 20:50 98.5 60 14 115/38 (63) 100 98.5 07/08/24 16:01 Room Air* 0 21 General Appearance: Alert, Oriented X3, Cooperative, No acute distress HEENT: Atraumatic, PERRLA, EOMI, Mucous membr. moist/pink Respiratory: Clear to auscultation, Normal air movement Cardiovascular: Regular rate, Normal S1, Normal S2, No murmurs Abdominal: Normal bowel sounds, Soft, No tenderness, No hepatospenomegaly, No masses Extremities: No clubbing, No cyanosis, No edema, Normal pulses, No tenderness/swelling Skin: No rashes, No breakdown, No significant lesion Neuro: Normal speech, Normal tone, Sensation intact, Cranial nerves 3-12 NL, Reflexes 2+, Other (Generalized weakness) Psych/Mental Status: Mental status NL, Mood NL Labs/Xrays Labs Test 07/08/24 18:59 07/08/24 17:20 07/08/24 16:00 07/08/24 14:06 Range/Units Hemoglobin 7.7 L 12.2-16.2 g/dL Hematocrit 26.7 L 36.0-46.0 % Troponin I High Sensitivity < 3 L </=34 ng/L Urine Color Light-yellow Yellow Urine Clarity Clear Clear Urine pH 6.0 5.0-9.0 Urine Specific [place] 1.019 1.001-1.035 Urine Protein Negative Negative Urine Ketones Negative Negative Urine Blood 2+ H Negative /uL Urine Nitrite Negative Negative Urine Bilirubin Negative Negative Urine Urobilinogen Normal Negative mg/dL Urine Leukocyte Esterase Negative Negative /uL Urine RBC 2 0 - 4 /hpf Urine Microscopic WBC 2 0-5 /HPF Urine Squamous Epithelial Cells Few <5 /hpf Urine Bacteria None seen None Seen /hpf Urine Mucus Few None Seen Urine Glucose 3+ H Normal mg/dL Urine Test Negative Negative White Blood Count 2.6 L 4.4-10.8 10^3/uL Red Blood Count 4.30 4.0-5.20 10^6/uL Mean Corpuscular Volume 60.8 L 80.0-100.0 fL Mean Corpuscular Hemoglobin 18.0 L 28.0-32.0 pg Mean Corpuscular Hemoglobin Concent 29.7 L 32.0-36.0 g/dL Red Cell Distribution Width 19.0 H 11.8-14.3 % Platelet Count 188 140-450 10^3/uL Mean Platelet Volume 8.4 6.9-10.8 fL Neutrophils (%) (Auto) 49.7 37.0-80.0 % Lymphocytes (%) (Auto) 39.1 10.0-50.0 % Monocytes (%) (Auto) 8.2 0.0-12.0 % Eosinophils (%) (Auto) 2.1 0.0-7.0 % Basophils (%) (Auto) 0.9 0.0-2.0 % Neutrophils # (Auto) 1.3 L 1.6-8.6 10 ^3/uL Lymphocytes # (Auto) 1.0 0.4-5.4 10 ^3/uL Monocytes # (Auto) 0.2 0-1.3 10 ^3/uL Eosinophils # (Auto) 0.1 0-0.8 10 ^3/uL Basophils # (Auto) 0 0-0.2 10 ^3/uL Nucleated Red Blood Cells 0.1 % Sodium Level 141 136-145 mmol/L Potassium Level 3.3 L 3.5-5.1 mmol/L Chloride Level 108 H 98-107 mmol/L Carbon Dioxide Level 25 20-31 mmol/L Anion Gap 8 5-15 Blood Urea Nitrogen 12 9-23 mg/dL Creatinine 0.87 0.550-1.02 mg/dL Glomerular Filtration Rate Calc 84 >90 mL/min BUN/Creatinine Ratio 13.8 10.0-20.0 Serum Glucose 208 H 74-106 mg/dL Hemoglobin A1c 5.4 <5.7 % A1C Lactic Acid Level 1.9 0.4-2.0 mmol/L Calcium Level 8.7 8.7-10.4 mg/dL Magnesium Level 2.2 1.6-2.6 mg/dL Total Bilirubin 0.4 0.2-1.0 mg/dL Aspartate Amino Transferase (AST) 12 L 13-40 U/L Alanine Aminotransferase (ALT) 13 7-40 U/L Alkaline Phosphatase 45 L 46-116 U/L Total Protein 7.1 5.7-8.2 g/dL Albumin 4.3 3.2-4.8 g/dL Lipase 78 H 12-53 U/L PATIENT: LEVY ORTEGA ACCT: [id number] UNIT: [id number] : 1980 LOC: ER ROOM / BED: / AGE / SEX: 43 / F ADM STATUS: REG ER SERVICE [id number] ORDERING PHYSICIAN: DARRYL KHAN DO PROCEDURE(s): ABPL - CT AB PEL WO CON-NO ORAL OR IV REASON: n/v/syncope abd pain ORDER NUMBER(s): [id number], ACCESSION NUMBER(s): [id number] Exam: CT CT AB PEL WO CON-NO ORAL OR IV History: n/v/syncope abd pain Comparison Study: None available at time of dictation. TECHNIQUE: Multidetector CT of the abdomen was performed from lung bases to pubic symphysis. Imaging was performed without IV contrast. Axial, coronal and sagittal multiplanar reformats were obtained from the axial data set by the technologist. Radiation Dose Information: CT Dose: CTDI volume is 5.07 mGy. Dose-length product is 247.05 mGy*cm FINDINGS: Evaluation of solid organs is limited due to lack of intravenous contrast use. Findings: Lung Bases: No acute or significant lung base finding. Normal heart size. No pleural or pericardial effusion. Liver: The liver is normal in size. No focal lesions. Gallbladder and Biliary Tree: Unremarkable Spleen: Unremarkable Pancreas: The pancreas is grossly normal in appearance. Adrenal Glands: Unremarkable Kidneys: Kidneys are grossly normal without calculi or hydronephrosis. Bladder: Grossly unremarkable for degree of distention. Bowel: The stomach is grossly normal in appearance. Small bowel and colon are normal in caliber and distribution. The appendix is not visualized; however, no secondary findings of acute appendicitis identified. Ascites: Absent Lymphadenopathy: No mesenteric, retroperitoneal or periportal lymphadenopathy. Abdominal Wall and Mesentery: Unremarkable. Vasculature: The visualized abdominal aorta is normal in size and caliber. Evaluation of abdominal and pelvic vessels is limited due to lack of intravenous contrast. Pelvic Organs: Uterus measures 11.5 by 6.4 by 7.7 cm. Musculoskeletal: No aggressive focal bony lesions, acute fractures or dislocation. Soft tissues: Unremarkable IMPRESSION: 1. No findings of bowel obstruction 2. No calcified gallstones 3. No nephrolithiasis or hydronephrosis. 4. Prominent uterus measuring 11.5 by 6.4 x 7.7 cm. Assessment/Plan Assessment/Plan Syncope and collapse Acute abdominal pain Diarrhea Hypokalemia Leukopenia Symptomatic anemia Plan 1. Admit to telemetry unit 2. Breathing treatment 3. Pain control management 4. IV antibiotic management 5. Management of fluids and electrolytes 6. Consultation for hospitalist 7. Diagnostic test chest x-ray 8. DVT prophylaxis on SCDs 9. Repeat labs CBC, CMP in a.m. 10. Home medication reviewed and reconciled 11. Continue with current medical management 12. Treatment plan discussed with patient and RN. Patient verbalized understanding. Plan discussed with: Patient, Other (RN) My Orders Orders - JAQUELIN CARUSO DNP Procedure Category Date Status Time Ceftriaxone 1gm/50ml PHA 07/09/24 Logged D5w (Rocephin) 09:00 Pantoprazole PHA 07/09/24 Logged (Protonix) 10:00 Potassium Er Tablet PHA 07/08/24 Logged (Klor-Con Tablet) 20:30 Allergies DINESH 07/08/24 In Process 20:30 Code Status CODE 07/08/24 Transmitted 20:30 Sodium Chloride Lock PHA 07/08/24 Logged (Saline Lock Ns) 22:00 Oxygen Per Hour RT 07/08/24 Transmitted 20:30 Hydrocodone-Acet PHA 07/08/24 Logged 5/325mg Tab ([place] 20:30 Ondansetron Hcl PHA 07/08/24 Logged (Zofran) 20:30 Docusate Sodium PHA 07/08/24 Logged Capsule (Colace 20:30 Complete Blood Count LAB 07/09/24 Verified 04:00 Comprehensive LAB 07/09/24 Verified Metabolic Panel 04:00 Cardiac DIET 07/09/24 Transmitted Diet-2gna,Lofat,Lochol Breakfast Condition: Serious DINESH 07/08/24 In Process 20:30 Acetaminophen Tablet PHA 07/08/24 Logged (Tylenol Tablet) 20:30 Bedrest With Bathroom DINESH 07/08/24 Verified Privileg 20:30 Sequential DINESH 07/08/24 Verified Compression Device Problem List: (1) Syncope and collapse (2) Symptomatic anemia (3) Diarrhea (4) Hypokalemia (5) Leukopenia (6) Acute abdominal pain Date of Service: July 08, 2024 Billing Provider: JAQUELIN CARUSO DNP Common Visit Codes: [id number] INP/OBS CARE (HIGH) JAQUELIN CARUSO DNP July 08, 2024 21:29
[2024-07-08] MEDS ORDERED: MORPHINE SULFATE INJ 2 MG/ml SYRG IV PRN (21:30)
[2024-07-08] MEDS ORDERED: NITROGLYCERIN 0.4 MG SL TAB SL PRN (21:30)
[2024-07-08] MEDS: SODIUM CHLOR 0.9% PF (SALINE LOCK) 10ML VIAL/SYR IV SCH (22:54)
[2024-07-08] MEDS: ONDANSETRON HCL 4 MG/2 ML VIAL IV PRN (22:54)
[2024-07-08] MEDS: POTASSIUM CHL 20 Meq TABLET PO ONE (23:14)
[2024-07-09 01:41] VITALS: PULSE 56; RESP 18; O2SAT 98
[2024-07-09 03:55] LABS: Eosinophils # (auto) 0.1 10 ^3/uL (0-0.8); Hemoglobin 7.5 g/dL (12.2-16.2); Lymphocytes # (auto) 1.7 10 ^3/uL (0.4-5.4); Monocytes # (auto) 0.3 10 ^3/uL (0-1.3); White Blood Cell 4.4 10^3/uL (4.4-10.8)
[2024-07-09 03:57] LABS: Basophils # (auto) 0.1 10 ^3/uL (0-0.2); Basophils % (auto) 1.3 % (0.0-2.0); Eosinophils % (auto) 2.2 % (0.0-7.0); Hematocrit 25.7 % (36.0-46.0); Lymphocytes % (auto) 38.8 % (10.0-50.0); Mean Corpuscular Hgb Conc. 29.1 g/dL (32.0-36.0); Mean Corpuscular Volume 61.7 fL (80.0-100.0); Neutrophils # (auto) 2.2 10 ^3/uL (1.6-8.6); Neutrophils % (auto) 50.7 % (37.0-80.0); Platelet Count (auto) 187 10^3/uL (140-450); Red Blood Cells 4.16 10^6/uL (4.0-5.20); Red Cell Distribution Width 18.4 % (11.8-14.3)
[2024-07-09 04:27] LABS: Alanine Aminotransferase 22 U/L (7-40); Albumin 4.2 g/dL (3.2-4.8); Alkaline Phosphatase 48 U/L (46-116); Anion Gap 8 (5-15); Aspartate Aminotransferase 21 U/L (13-40); BUN/Creatinine Ratio 17.1 (10.0-20.0); Blood Urea Nitrogen 13 mg/dL (9-23); Calcium 8.9 mg/dL (8.7-10.4); Carbon Dioxide 24 mmol/L (20-31); Potassium 4.1 mmol/L (3.5-5.1); Sodium 142 mmol/L (136-145); Total Protein 7.1 g/dL (5.7-8.2)
[2024-07-09 04:31] LABS: Bilirubin, Total 0.3 mg/dL (0.2-1.0); Chloride 110 mmol/L (98-107); Glucose 110 mg/dL (74-106)
[2024-07-09 05:27] LABS: Hypochromia Moderate; Platelet Estimate Adequate
[2024-07-09 05:50] VITALS: PULSE 57; RESP 15; O2SAT 98
[2024-07-09 08:50] LABS: % Iron Saturation 3.2 % (15-50)
[2024-07-09] MEDS: PANTOPRAZOLE 40 MG/10 ML VIAL INJ IV SCH (10:42)
[2024-07-09] MEDS: cefTRIAXone 1GM/50ML D5W 50 ML IV SCH (10:42)
[2024-07-09 15:48] VITALS: BP 114/45; PULSE 62; RESP 21; TEMP 97.9; O2SAT 99
--- NOTE | 2024-07-09 17:02 | DVHPNRES ---
Progress Note Date Seen: July 09, 2024 Resident Creating Document: LYNDSAY REINOSO RESIDENT Has the PT tested + for MRSA If YES, has PT been informed?: No Medical Necessity Reason Pt with a Central, PICC or Fol: No Medical Necessity Reason History of Present Illness The patient is a 43-year-old female who denies past medical history presented to [facility] ED for evaluation of syncopal episode. Patient reports symptoms progressively get worse with diffuse abdominal pain, nausea, diarrhea, getting worse that prompted this visit. Patient is a poor historian and a [place] speaker.Per son, who is translating on patient's behalf, patient is stated to have had yellow diarrhea for one-week and remaining GI symptoms for the past few days, with most recent onset taking place, while at a restaurant, this afternoon. She then had a syncopal episode that was witnessed by family after going home, when she stood up and sat back down in her seat. Patient was seen and evaluated in the ED, laboratory data shows WBC 2.6, hemoglobin 7.7, hematocrit 26.1, platelets 188, sodium 141, potassium 3.3, BUN 12, creatinine 0.87, glucose 208, hemoglobin A1c 5.4, lipase 78, troponin < 3. Please see medication orders section in the computer. On my assessment, patient denied chest pain, no headache, no dizziness, no diaphoresis, no shortness of breath, no nausea or vomiting at this moment, no fever, no chills. Patient was admitted for further evaluation and medical management. Past Medical History: Esophagitis, gastritis Past Surgical History: Denies all surgeries Family History: Reviewed, noncontributory to the management of this case. Past Social History:The patient lives at home, denies smoking, alcohol or illicit drugs abuse. PN: 07/09/2024 Patient is a 43-year-old female who was actually seen a [facility] in October of 2023 with intractable nausea and vomiting. she had an EGD that revealed sliding- type hiatal hernia with slightly irregular squamocolumnar junction minimal grade a erosive esophagitis and gastritis. Patient was discharged home in a stable state. Patient now presents to the ED yesterday with a complaint of diarrhea of one-week duration followed by diffuse abdominal pain nausea, dizziness that happened a day prior to presenting to the ED. patient describes diarrhea watery nonbloody nonmucous like yellow. And she has a about 5-6 bowel movements a day. She denied any recent contact with a sick person or any viral infection. However patient admits to eating outside half of the time. She denied any weight loss any dysphagia. In the ED initial blood work revealed hemoglobin of 7.7 9 ( Previous record showed 12.2), Iron: 13.4, Ferritin:2.6. CT abdomen unremarkable other than prominent uterus measuring 11.5 by 6.4 x 7.7 cm. Subjective Review of Systems Constitutional: Denies fever no chills. fatigued, dizzy HEENT: Denies headache, ear pain, ear discharges, conjunctivitis, nasal discharge throat pain Cardiovascular: Denies chest pain, palpitation, orthopnea, PND, or pedal edema Respiratory: Denies shortness of breath, cough cough, sputum production, hemoptysis, GI: Periumabilical abdominal pain, nausea, vomiting, diarrhea, hematemesis, hematochezia, : Denies frequency, urgency, hematuria, Endocrine: Denies unintentional weight gain or weight loss, feeling of hot flashes, [place]: Denies easy bruising, bleeding disorders, epistaxis Musculoskeletal: Denies joint pains, muscle aches Psych: No evidence of depression, marybeth, suicidal ideation Objective vital signs Vital Sign Date Time Temp Pulse Resp B/P (MAP) Pulse Ox O2 Delivery O2 Flow Rate FiO2 07/09/24 15:48 97.9 62 21 114/45 (68) 99 97.9 07/09/24 07:19 Room Air* 0 21 Total Intake and Output 07/08/24 07/08/24 07/09/24 15:00 23:00 07:00 Intake Total 1000 ml 600 ml Balance 1000 ml 600 ml medications Current Medications Medications Dose Ordered Sig/Noris Route Start Time Stop Time Status Last Admin Dose Admin Ceftriaxone Sodium 50 ml @ 100 mls/hr DAILY@09 IV 07/09/24 09:00 07/09/24 10:42 100 MLS/HR Pantoprazole Sodium 40 mg DAILY IV 07/09/24 10:00 07/09/24 10:42 40 MG Sodium Chloride 10 ml Q8HR IV 07/08/24 22:00 07/09/24 14:24 10 ML Acetaminophen/ Hydrocodone Bitart 1 tab Q4HP PRN PO 07/08/24 20:30 Ondansetron HCl 4 mg Q4HP PRN IV 07/08/24 20:30 07/08/24 22:54 4 MG Docusate Sodium 100 mg BIDPRN PRN PO 07/08/24 20:30 Acetaminophen 650 mg Q6HP PRN PO 07/08/24 20:30 Nitroglycerin 0.4 mg Q5MINP PRN SL 07/08/24 21:30 Morphine Sulfate 2 mg Q30M PRN IV 07/08/24 21:30 Examination General Appearance: Alert, Oriented X3, Cooperative, No acute distress HEENT: Atraumatic, PERRLA, EOMI, Mucous membrane moist/pink Chest: Clear to auscultation, Normal air movement, breath augumentation Cardiovascular: Regular rate, Normal S1, Normal S2, No murmurs, no chest wall tenderness Abdominal: NO distention, tenderness in the periumbicial and left lower quadrant, bowel sounds present, no scars noted Extremities: No clubbing, No cyanosis, No edema, Normal pulses, No tenderness/swelling Skin: No rashes, No breakdown, No significant lesion Neuro: Normal gait, Normal speech, Strength at / X4 ext, Normal tone, Sensation intact, Cranial nerves 3-12 NL, Reflexes 2+ Psych/Mental Status: Mental status NL, Mood NL laboratory and microbiology Laboratory Tests 07/09/24 03:46 Test 07/09/24 03:46 Range/Units Serum Glucose 110 H 74-106 mg/dL Microbiology Date/Time Source Procedure Growth Status 07/09/24 09:29 Stool Clostridium difficile Toxin Assay - Final Complete 07/08/24 15:09 Blood Blood Culture - Preliminary NO GROWTH AFTER 24 HOURS OF INCUBATION. Resulted Problem List/Assessment/Plan Problem List/Assessment/Plan Assessment and plan Severe anemia, microcytic Anemia due? fibroid iron-deficiency anemia Rule out GI bleed menorrhagia --> Hgb:7.7/25.7 --> Ferritin: 2.6 --> TIBC: 411 --> Iron 13 --> Haptoglobin pending --> Reticulocyte pending Anemia due? 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 Brand Plan discussed with: Patient My Orders My Orders Orders - LYNDSAY REINOSO Procedure Category Date Status Time Stool Occult Blood LAB 07/09/24 Logged 08:23 Haptoglobin LAB 07/09/24 In Process 08:23 Date of Service: July 09, 2024 Billing Provider: ИВАН BRAND MD Common Visit Codes: [id number] INP/OBS CARE(HIGH) LYNDSAY REINOSO RESIDENT July 09, 2024 17:02 ИВАН BRAND MD July 11, 2024 21:11
[2024-07-09 18:10] VITALS: BP 110/66; PULSE 79; RESP 19; TEMP 98.4; O2SAT 100
[2024-07-09] MEDS: IRON SUCROSE COMPLEX 110 ML IV SCH (19:41)
[2024-07-09 20:00] VITALS: PULSE 68
[2024-07-09 21:00] VITALS: BP 111/69; PULSE 68; RESP 19; TEMP 98; O2SAT 100
[2024-07-10] VITALS (7 sets, daily range): BP systolic 86–124; BP diastolic 48–82; PULSE 67–83; RESP 16–19; TEMP 97.9–99.5; O2SAT 94–100
[2024-07-10] MEDS: ACETAMINOPHEN 325 MG TAB PO PRN (09:05)
[2024-07-10 10:59] LABS: Basophils # (auto) 0 10 ^3/uL (0-0.2); Eosinophils # (auto) 0 10 ^3/uL (0-0.8); Eosinophils % (auto) 0.1 % (0.0-7.0); Mean Corpuscular Hemoglobin 17.8 pg (28.0-32.0); Mean Corpuscular Hgb Conc. 29.3 g/dL (32.0-36.0); Monocytes # (auto) 0.3 10 ^3/uL (0-1.3); Neutrophils # (auto) 5.3 10 ^3/uL (1.6-8.6); White Blood Cell 6.1 10^3/uL (4.4-10.8)
[2024-07-10 11:03] LABS: Basophils % (auto) 0.4 % (0.0-2.0); Hematocrit 23.1 % (36.0-46.0); Lymphocytes # (auto) 0.5 10 ^3/uL (0.4-5.4); Lymphocytes % (auto) 7.7 % (10.0-50.0); Mean Corpuscular Volume 60.8 fL (80.0-100.0); Monocytes % (auto) 5.1 % (0.0-12.0); Neutrophils % (auto) 86.7 % (37.0-80.0); Platelet Count (auto) 167 10^3/uL (140-450); Red Cell Distribution Width 18.9 % (11.8-14.3)
[2024-07-10 11:09] LABS: Anion Gap 7 (5-15); Carbon Dioxide 24 mmol/L (20-31); Sodium 140 mmol/L (136-145)
[2024-07-10 11:10] LABS: Calcium 8.3 mg/dL (8.7-10.4); Chloride 109 mmol/L (98-107); Potassium 3.4 mmol/L (3.5-5.1)
[2024-07-10 11:12] LABS: Hemoglobin 6.8 g/dL (12.2-16.2)
[2024-07-10 11:15] LABS: BUN/Creatinine Ratio 14.3 (10.0-20.0); Blood Urea Nitrogen 11 mg/dL (9-23); Glucose 106 mg/dL (74-106)
--- NOTE | 2024-07-10 18:36 | DVHPNRES ---
Progress Note Date Seen: July 10, 2024 Resident Creating Document: LYNDSAY REINOSO RESIDENT Has the PT tested + for MRSA If YES, has PT been informed?: No Medical Necessity Reason Pt with a Central, PICC or Fol: No Medical Necessity Reason History of Present Illness The patient is a 43-year-old female who denies past medical history presented to [facility] ED for evaluation of syncopal episode. Patient reports symptoms progressively get worse with diffuse abdominal pain, nausea, diarrhea, getting worse that prompted this visit. Patient is a poor historian and a [place] speaker.Per son, who is translating on patient's behalf, patient is stated to have had yellow diarrhea for one-week and remaining GI symptoms for the past few days, with most recent onset taking place, while at a restaurant, this afternoon. She then had a syncopal episode that was witnessed by family after going home, when she stood up and sat back down in her seat. Patient was seen and evaluated in the ED, laboratory data shows WBC 2.6, hemoglobin 7.7, hematocrit 26.1, platelets 188, sodium 141, potassium 3.3, BUN 12, creatinine 0.87, glucose 208, hemoglobin A1c 5.4, lipase 78, troponin < 3. Please see medication orders section in the computer. On my assessment, patient denied chest pain, no headache, no dizziness, no diaphoresis, no shortness of breath, no nausea or vomiting at this moment, no fever, no chills. Patient was admitted for further evaluation and medical management. Past Medical History: Esophagitis, gastritis Past Surgical History: Denies all surgeries Family History: Reviewed, noncontributory to the management of this case. Past Social History:The patient lives at home, denies smoking, alcohol or illicit drugs abuse. PN: 07/09/2024 Patient is a 43-year-old female who was actually seen a [facility] in October of 2023 with intractable nausea and vomiting. she had an EGD that revealed sliding- type hiatal hernia with slightly irregular squamocolumnar junction minimal grade a erosive esophagitis and gastritis. Patient was discharged home in a stable state. Patient now presents to the ED yesterday with a complaint of diarrhea of one-week duration followed by diffuse abdominal pain nausea, dizziness that happened a day prior to presenting to the ED. patient describes diarrhea watery nonbloody nonmucous like yellow. And she has a about 5-6 bowel movements a day. She denied any recent contact with a sick person or any viral infection. However patient admits to eating outside half of the time. She denied any weight loss any dysphagia. In the ED initial blood work revealed hemoglobin of 7.7 9 ( Previous record showed 12.2), Iron: 13.4, Ferritin:2.6. CT abdomen unremarkable other than prominent uterus measuring 11.5 by 6.4 x 7.7 cm. PN Patient is seen and examined today at the bedside present partner or was present. Further inquiring into about her change in Hemoglobin, patient said in April of this year, she actually had 1 month straight of menstrual bleed. Was using about 2-3 pads a day and her menstrual period was notable for of the clot. At that point patient called her PCP for referral to go see a thimble press operator, but all the appoint she got was in August/September and patient has just been waiting until the set appointment day. Until now when she had the episode of dizziness and passing out thus prompting her to come to the ED. Today revealed a repeat of her CBC due to hemoglobin of 6.8. 1 unit of blood ordered for the patient but patient refused that she preferred to have the iron instead. Refusal documented. Subjective Review of Systems Constitutional: Denies fever no chills no feeling of malaise HEENT: Denies headache, ear pain, ear discharges, conjunctivitis, nasal discharge throat pain Cardiovascular: Denies chest pain, palpitation, orthopnea, PND, or pedal edema Respiratory: Denies shortness of breath, cough cough, sputum production, hemoptysis, GI: Denies abdominal pain, nausea, vomiting, diarrhea, hematemesis, hematochezia, : Denies frequency, urgency, hematuria, Endocrine: Denies unintentional weight gain or weight loss, feeling of hot flashes, Calixto: Denies easy bruising, bleeding disorders, epistaxis Musculoskeletal: Denies joint pains, muscle aches Psych: No evidence of depression, marybeth, suicidal ideation Objective vital signs Vital Sign Date Time Temp Pulse Resp B/P (MAP) Pulse Ox O2 Delivery O2 Flow Rate FiO2 07/10/24 17:00 98.2 67 17 99/63 (75) 99 98.2 07/10/24 08:00 Room Air* 0 21 Total Intake and Output 07/09/24 07/09/24 07/10/24 15:00 23:00 07:00 Intake Total 50 ml 150 ml 500 ml Balance 50 ml 150 ml 500 ml medications Current Medications Medications Dose Ordered Sig/Noris Route Start Time Stop Time Status Last Admin Dose Admin Ceftriaxone Sodium 50 ml @ 100 mls/hr DAILY@09 IV 07/09/24 09:00 07/10/24 09:04 100 MLS/HR Pantoprazole Sodium 40 mg DAILY IV 07/09/24 10:00 07/09/24 10:42 40 MG Sodium Chloride 10 ml Q8HR IV 07/08/24 22:00 07/10/24 14:00 10 ML Acetaminophen/ Hydrocodone Bitart 1 tab Q4HP PRN PO 07/08/24 20:30 Ondansetron HCl 4 mg Q4HP PRN IV 07/08/24 20:30 07/10/24 03:21 4 MG Docusate Sodium 100 mg BIDPRN PRN PO 07/08/24 20:30 Acetaminophen 650 mg Q6HP PRN PO 07/08/24 20:30 07/10/24 09:05 650 MG Nitroglycerin 0.4 mg Q5MINP PRN SL 07/08/24 21:30 Morphine Sulfate 2 mg Q30M PRN IV 07/08/24 21:30 Iron Sucrose 110 ml @ 110 mls/hr DAILY@1200 IV 07/09/24 18:06 07/13/24 12:59 07/10/24 13:00 110 MLS/HR Examination Examination General Appearance: Alert, Oriented X3, Cooperative, No acute distress; pale HEENT: Atraumatic, PERRLA, EOMI, Mucous membrane moist/pink Chest: Clear to auscultation, Normal air movement, breath augumentation Cardiovascular: Regular rate, Normal S1, Normal S2, No murmurs, no chest wall tenderness Abdominal: NO distention, tenderness in the periumbicial and left lower quadrant, bowel sounds present, no scars noted Extremities: No clubbing, No cyanosis, No edema, Normal pulses, No tenderness/swelling Skin: No rashes, No breakdown, No significant lesion Neuro: Normal gait, Normal speech, Strength at 5/5 X4 ext, Normal tone, Sensation intact, Cranial nerves 3-12 NL, Reflexes 2+ Psych/Mental Status: Mental status NL, Mood NL laboratory and microbiology Laboratory Tests 07/10/24 10:26 Test 07/10/24 10:26 Range/Units Serum Glucose 106 74-106 mg/dL Microbiology Date/Time Source Procedure Growth Status 07/09/24 09:29 Stool Clostridium difficile Toxin Assay - Final Complete 07/08/24 15:09 Blood Blood Culture - Preliminary NO GROWTH AFTER 48 HOURS OF INCUBATION. Resulted Problem List/Assessment/Plan Problem List/Assessment/Plan Assessment and plan Severe acute anemia, microcytic Anemia due ? abnormal uterine bleed iron-deficiency anemia Rule out GI bleed menorrhagia --> Hgb:7.7/25.7--> 6.8/23.1 --> Ferritin: 2.6 --> TIBC: 411 --> Iron 13 --> Haptoglobin pending --> Reticulocyte: 1.04 --> Cna Ltc consult Diarrhea, due to below IVVD Gastroenteritis ,infectious etiology likely rule out C.diff and bacterial causes --> rule out C.Diff --> Stool toxin test pending Dizziness and fainting, likely due to anemia and ivvd as above History of Acute abdominal pain due to sliding hiatal hernia History of mild gastritis Goal of care discussed for 30 minutes via [place] beater operator Case discussed with Dr. Hernandez Plan discussed with: Patient My Orders My Orders Orders - LYNDSAY REINOSO Procedure Category Date Status Time * Supervisor Public Message Service Consultation CONS 07/10/24 Transmitted 11:22 LYNDSAY REINOSO July 10, 2024 18:36
[2024-07-10] MEDS: LACTATED RINGER'S 1,000 ML IV ONE (18:40)
[2024-07-10] MEDS: POTASSIUM EFFERVESENT TAB 25 MEQ PO ONE (20:54)
[2024-07-10] MEDS: CYANOCOBALAMIN 500 MCG TAB PO ONE (20:55)
[2024-07-10] MEDS: FOLIC ACID 1 MG TAB PO ONE (20:55)
[2024-07-11 01:00] VITALS: BP 112/57; PULSE 73; RESP 18; TEMP 98; O2SAT 100
[2024-07-11 05:00] VITALS: BP 103/51; PULSE 64; RESP 17; TEMP 97.8; O2SAT 98
[2024-07-11 06:00] LABS: Anion Gap 7 (5-15); Calcium 9.3 mg/dL (8.7-10.4); Carbon Dioxide 27 mmol/L (20-31); Potassium 4.9 mmol/L (3.5-5.1); Sodium 143 mmol/L (136-145)
[2024-07-11 06:06] LABS: BUN/Creatinine Ratio 11.3 (10.0-20.0); Blood Urea Nitrogen 9 mg/dL (9-23); Glucose 99 mg/dL (74-106)
[2024-07-11 06:07] LABS: Chloride 109 mmol/L (98-107)
[2024-07-11 06:36] LABS: Basophils # (auto) 0 10 ^3/uL (0-0.2); Eosinophils # (auto) 0.1 10 ^3/uL (0-0.8); Monocytes # (auto) 0.3 10 ^3/uL (0-1.3); White Blood Cell 3.5 10^3/uL (4.4-10.8)
[2024-07-11 06:38] LABS: Basophils % (auto) 1.3 % (0.0-2.0); Eosinophils % (auto) 1.6 % (0.0-7.0); Hematocrit 23.3 % (36.0-46.0); Lymphocytes # (auto) 1.6 10 ^3/uL (0.4-5.4); Lymphocytes % (auto) 44.2 % (10.0-50.0); Mean Corpuscular Hemoglobin 18.3 pg (28.0-32.0); Mean Corpuscular Hgb Conc. 29.8 g/dL (32.0-36.0); Mean Corpuscular Volume 61.4 fL (80.0-100.0); Monocytes % (auto) 7.9 % (0.0-12.0); Neutrophils # (auto) 1.6 10 ^3/uL (1.6-8.6); Nucleated Red Blood Cells % 0.2 %; Platelet Count (auto) 185 10^3/uL (140-450); Red Cell Distribution Width 19.1 % (11.8-14.3)
[2024-07-11 07:04] LABS: Hemoglobin 6.9 g/dL (12.2-16.2)
[2024-07-11 07:30] LABS: Hypochromia Moderate
[2024-07-11 07:33] LABS: Large Platelets FEW; Ovalocytes FEW; Platelet Estimate Adequa
[2024-07-11 08:00] VITALS: PULSE 61; PULSE 69; RESP 18
[2024-07-11 09:00] VITALS: BP 88/59; PULSE 61; RESP 18; TEMP 98; O2SAT 97
[2024-07-11] MEDS: CYANOCOBALAMIN 500 MCG TAB PO SCH (09:00)
[2024-07-11] MEDS: FOLIC ACID 1 MG TAB PO SCH (09:00)
--- NOTE | 2024-07-11 13:29 | DVHINCON2 ---
Date of service: July 11, 2024 Referring Physician hospitalist Reason for Consultation menorrhagia with anemia History of Present Illness PT IS ADMITTED FOR SYNCOPE,ANEMIA AND MENOOHAGIA.SHE REPORTS HER LAST PAp on 05/02 ,she reports having heavy menses has not seen station agent .her ct reveals 11 wks size uterus Past Medical History na Past Surgical History na Family History na Social History na, Patient Family History: FHx: cancer G8 FATHER, Allergies: Coded Allergies: NO KNOWN ALLERGIES (Unverified , 05/12/18) Home Meds Active Scripts Calcitriol (Calcitriol) 0.25 Mcg Cap, 1 CAP PO DAILY for 30 Days, #30 CAP 5 Refills Prov:JACKIECLAUDY SEGAL [facility] 11/04/23 Ergocalciferol (VITAMIN D 96633 UNIT) 50,000 [place], [address] UNIT PO QWEEKLY for 30 Days, #10 CAP Prov:REBECCACLAUDY BRIGHT [facility] 11/04/23 Sucralfate (Sucralfate) 1 Gm Tab, 1 GM PO BID for 30 Days, #60 TAB Prov:REBECCADEANGELOCLAUDY [facility] 11/04/23 Pantoprazole Sodium Sesquihydr (Pantoprazole Sodium) 40 Mg Tab, 40 MG PO DAILY@0600 for 30 Days, #30 TAB Prov:MEGHANACLAUDY VARGAS [facility] 11/04/23 Acetaminophen (Acetaminophen) 325 Mg Tab, 650 MG PO Q6HP PRN for 10 Days, #80 TAB Prov:CLAUDY BRYANT [facility] 11/04/23 Current Medications Current Medications Medications (Trade) Dose Ordered Sig/Noris Route PRN Reason Start Time Stop Time Status Last Admin Folic Acid 1 mg DAILY PO 07/11/24 10:00 07/11/24 09:00 Cyanocobalamin (Vitamin B-12) 1,000 mcg DAILY PO 07/11/24 10:00 07/11/24 09:00 Review of Systems Constitutional: no fever, chill, weight loss HEENT: no eye pain, no hearing loss, no oral lesion, no scleral icterus Heart: no chest pain, no chest pressure Lung: no cough, no dyspnea with exertion Abdomen: see HPI : no pain with urination, normal appearing urine Musculoskeletal: no joint pain, no muscle pain Neurological: no seizure, no loss of sensation, some weakness in extremities Pysch: no depression, no anxiety Derm: no rash, no jaundice Vital Signs Vital Signs Date Time Temp Pulse Resp B/P (MAP) Pulse Ox O2 Delivery O2 Flow Rate FiO2 07/11/24 09:00 98.0 61 18 88/59 (69) 97 98.0 07/11/24 08:00 Room Air* 0 21 Physical Exam SKIN: [pale ] HEENT: [pale conjuctivae ] NECK: [nl] CARDIAC: [rrr] PULMONARY: [cta] ABDOMEN: [soft,nt] MUSCULOSKELETAL: [nl ] NEURO: [nl pelvic-no active bleeding noted ,cx nl,uterus 11 wks size ,adenxa nt] Labs/Diagnostic Data Labs Test 07/11/24 05:19 07/09/24 21:00 07/09/24 09:48 07/09/24 05:30 Range/Units White Blood Count 3.5 #L 4.4-10.8 10^3/uL Red Blood Count 3.80 L 4.0-5.20 10^6/uL Hemoglobin 6.9 *L 12.2-16.2 g/dL Hematocrit 23.3 L 36.0-46.0 % Mean Corpuscular Volume 61.4 L 80.0-100.0 fL Mean Corpuscular Hemoglobin 18.3 L 28.0-32.0 pg Mean Corpuscular Hemoglobin Concent 29.8 L 32.0-36.0 g/dL Red Cell Distribution Width 19.1 H 11.8-14.3 % Platelet Count 185 140-450 10^3/uL Mean Platelet Volume 8.3 6.9-10.8 fL Neutrophils (%) (Auto) 45.0 37.0-80.0 % Lymphocytes (%) (Auto) 44.2 10.0-50.0 % Monocytes (%) (Auto) 7.9 0.0-12.0 % Eosinophils (%) (Auto) 1.6 0.0-7.0 % Basophils (%) (Auto) 1.3 0.0-2.0 % Neutrophils # (Auto) 1.6 1.6-8.6 10 ^3/uL Lymphocytes # (Auto) 1.6 0.4-5.4 10 ^3/uL Monocytes # (Auto) 0.3 0-1.3 10 ^3/uL Eosinophils # (Auto) 0.1 0-0.8 10 ^3/uL Basophils # (Auto) 0 0-0.2 10 ^3/uL Nucleated Red Blood Cells 0.2 % Platelet Estimate [place] Large Platelets Few Hypochromasia (manual) Moderate Microcytosis Moderate Ovalocytes Few Schistocytes Few Sodium Level 143 136-145 mmol/L Potassium Level 4.9 3.5-5.1 mmol/L Chloride Level 109 H 98-107 mmol/L Carbon Dioxide Level 27 20-31 mmol/L Anion Gap 7 5-15 Blood Urea Nitrogen 9 9-23 mg/dL Creatinine 0.80 0.550-1.02 mg/dL Glomerular Filtration Rate Calc 93 >90 mL/min BUN/Creatinine Ratio 11.3 10.0-20.0 Serum Glucose 99 74-106 mg/dL Calcium Level 9.3 8.7-10.4 mg/dL Lactate Dehydrogenase 179 120-246 U/L Haptoglobin 86 42-296 mg/dL Stool for White Cells None seen Test 07/09/24 03:46 07/08/24 17:20 07/08/24 16:00 07/08/24 14:06 Range/Units Reticulocyte Count (auto) 1.04 0.5-1.5 % Iron Level 13 L 50-170 ug/dL Total Iron Binding Capacity 411 250-425 ug/dL Percent Iron Saturation 3.2 L 15-50 % Ferritin 2.6 L 10-291 ng/mL Total Bilirubin 0.3 0.2-1.0 mg/dL Aspartate Amino Transferase (AST) 21 13-40 U/L Alanine Aminotransferase (ALT) 22 7-40 U/L Alkaline Phosphatase 48 46-116 U/L Total Protein 7.1 5.7-8.2 g/dL Albumin 4.2 3.2-4.8 g/dL Troponin I High Sensitivity < 3 L </=34 ng/L Urine Color Light-yellow Yellow Urine Clarity Clear Clear Urine pH 6.0 5.0-9.0 Urine Specific [place] 1.019 1.001-1.035 Urine Protein Negative Negative Urine Ketones Negative Negative Urine Blood 2+ H Negative /uL Urine Nitrite Negative Negative Urine Bilirubin Negative Negative Urine Urobilinogen Normal Negative mg/dL Urine Leukocyte Esterase Negative Negative /uL Urine RBC 2 0 - 4 /hpf Urine Microscopic WBC 2 0-5 /HPF Urine Squamous Epithelial Cells Few <5 /hpf Urine Bacteria None seen None Seen /hpf Urine Mucus Few None Seen Urine Glucose 3+ H Normal mg/dL Urine Test Negative Negative Hemoglobin A1c 5.4 <5.7 % A1C Lactic Acid Level 1.9 0.4-2.0 mmol/L Magnesium Level 2.2 1.6-2.6 mg/dL Lipase 78 H 12-53 U/L Microbiology Date/Time Source Procedure Growth Status 07/09/24 09:29 Stool Clostridium difficile Toxin Assay - Final Complete 07/08/24 15:09 Blood Blood Culture - Preliminary NO GROWTH AFTER 48 HOURS OF INCUBATION. Resulted Primary Diagnosis syncope,anemia 2' Diagnosis/Comorbidities menorrhagia with anemia Plan pt refuses blood transfusion pt needs to fu outpt for endometrial biopsy,option of ocp,mirena iud and endometrial ablation d/w pt.pt needs to fu raven .will sign off ,thank you for this consultation Plan discussed with: Patient Visit Coding OBGYN Date of Service: July 11, 2024 Billing Provider: SALAZAR JOHNSON DO [employer] Common Visit Codes: 74998-[id number] INP/OBS CARE(HIGH) [employer] Consultation Codes: [id number] CONSULT <80MIN SALAZAR JOHNSON DO July 11, 2024 13:29
[2024-07-11 17:00] VITALS: BP 101/57; PULSE 68; RESP 17; TEMP 98.4; O2SAT 100
--- NOTE | 2024-07-11 17:49 | DVHDSRES ---
Discharge Summary Date of Admission Resident Creating Document: LYNDSAY REINOSO RESIDENT July 08, 2024 at 21:27 Date of Discharge: July 11, 2024 Admitting Diagnosis Severe microcytic anemia Labs/Diagnostic Data: PATIENT: LEVY ORTEGA ACCT: [id number] UNIT: [id number] : 1980 LOC: ER ROOM / BED: / AGE / SEX: 43 / F ADM STATUS: REG ER SERVICE [id number] ORDERING PHYSICIAN: DARRYL KHAN DO PROCEDURE(s): ABPL - CT AB PEL WO CON-NO ORAL OR IV REASON: n/v/syncope abd pain ORDER NUMBER(s): [id number], ACCESSION NUMBER(s): [id number] Exam: CT CT AB PEL WO CON-NO ORAL OR IV History: n/v/syncope abd pain Comparison Study: None available at time of dictation. TECHNIQUE: Multidetector CT of the abdomen was performed from lung bases to pubic symphysis. Imaging was performed without IV contrast. Axial, coronal and sagittal multiplanar reformats were obtained from the axial data set by the technologist. Radiation Dose Information: CT Dose: CTDI volume is 5.07 mGy. Dose-length product is 247.05 mGy*cm FINDINGS: Evaluation of solid organs is limited due to lack of intravenous contrast use. Findings: Lung Bases: No acute or significant lung base finding. Normal heart size. No pleural or pericardial effusion. Liver: The liver is normal in size. No focal lesions. Gallbladder and Biliary Tree: Unremarkable Spleen: Unremarkable Pancreas: The pancreas is grossly normal in appearance. Adrenal Glands: Unremarkable Kidneys: Kidneys are grossly normal without calculi or hydronephrosis. Bladder: Grossly unremarkable for degree of distention. Bowel: The stomach is grossly normal in appearance. Small bowel and colon are normal in caliber and distribution. The appendix is not visualized; however, no secondary findings of acute appendicitis identified. Ascites: Absent Lymphadenopathy: No mesenteric, retroperitoneal or periportal lymphadenopathy. Abdominal Wall and Mesentery: Unremarkable. Vasculature: The visualized abdominal aorta is normal in size and caliber. Evaluation of abdominal and pelvic vessels is limited due to lack of intravenous contrast. Pelvic Organs: Uterus measures 11.5 by 6.4 by 7.7 cm. Musculoskeletal: No aggressive focal bony lesions, acute fractures or dislocation. Soft tissues: Unremarkable IMPRESSION: 1. No findings of bowel obstruction 2. No calcified gallstones 3. No nephrolithiasis or hydronephrosis. 4. Prominent uterus measuring 11.5 by 6.4 x 7.7 cm. Radiation optimization: All CT scans at this facility use at least one of these dose optimization techniques: automated exposure control mA and/or kV adjustment per patient size (includes targeted exams where dose is matched to clinical indication) or iterative reconstruction. ATED BY: MARTHA CHRISTINA Jr. DO DICTATED DATE/TIME: 07/08/24 1720 Laboratory Results Test 07/11/24 05:19 07/09/24 21:00 07/09/24 09:48 07/09/24 05:30 White Blood Count 3.5 10^3/uL (4.4-10.8) Red Blood Count 3.80 10^6/uL (4.0-5.20) Hemoglobin 6.9 g/dL (12.2-16.2) Hematocrit 23.3 % (36.0-46.0) Mean Corpuscular Volume 61.4 fL (80.0-100.0) Mean Corpuscular Hemoglobin 18.3 pg (28.0-32.0) Mean Corpuscular Hemoglobin Concent 29.8 g/dL (32.0-36.0) Red Cell Distribution Width 19.1 % (11.8-14.3) Platelet Count 185 10^3/uL (140-450) Mean Platelet Volume 8.3 fL (6.9-10.8) Neutrophils (%) (Auto) 45.0 % (37.0-80.0) Lymphocytes (%) (Auto) 44.2 % (10.0-50.0) Monocytes (%) (Auto) 7.9 % (0.0-12.0) Eosinophils (%) (Auto) 1.6 % (0.0-7.0) Basophils (%) (Auto) 1.3 % (0.0-2.0) Neutrophils # (Auto) 1.6 10 ^3/uL (1.6-8.6) Lymphocytes # (Auto) 1.6 10 ^3/uL (0.4-5.4) Monocytes # (Auto) 0.3 10 ^3/uL (0-1.3) Eosinophils # (Auto) 0.1 10 ^3/uL (0-0.8) Basophils # (Auto) 0 10 ^3/uL (0-0.2) Nucleated Red Blood Cells 0.2 % Platelet Estimate [place] Large Platelets Few Hypochromasia (manual) Moderate Microcytosis Moderate Ovalocytes Few Schistocytes Few Sodium Level 143 mmol/L (136-145) Potassium Level 4.9 mmol/L (3.5-5.1) Chloride Level 109 mmol/L (98-107) Carbon Dioxide Level 27 mmol/L (20-31) Anion Gap 7 (5-15) Blood Urea Nitrogen 9 mg/dL (9-23) Creatinine 0.80 mg/dL (0.550-1.02) Glomerular Filtration Rate Calc 93 mL/min (>90) BUN/Creatinine Ratio 11.3 (10.0-20.0) Serum Glucose 99 mg/dL (74-106) Calcium Level 9.3 mg/dL (8.7-10.4) Lactate Dehydrogenase 179 U/L (120-246) Haptoglobin 86 mg/dL (42-296) Stool for White Cells None seen Test 07/09/24 03:46 07/08/24 17:20 07/08/24 16:00 07/08/24 14:06 Reticulocyte Count (auto) 1.04 % (0.5-1.5) Iron Level 13 ug/dL (50-170) Total Iron Binding Capacity 411 ug/dL (250-425) Percent Iron Saturation 3.2 % (15-50) Ferritin 2.6 ng/mL (10-291) Total Bilirubin 0.3 mg/dL (0.2-1.0) Aspartate Amino Transferase (AST) 21 U/L (13-40) Alanine Aminotransferase (ALT) 22 U/L (7-40) Alkaline Phosphatase 48 U/L (46-116) Total Protein 7.1 g/dL (5.7-8.2) Albumin 4.2 g/dL (3.2-4.8) Troponin I High Sensitivity < 3 ng/L (</=34) Urine Color Light-yellow (Yellow) Urine Clarity Clear (Clear) Urine pH 6.0 (5.0-9.0) Urine Specific [place] 1.019 (1.001-1.035) Urine Protein Negative (Negative) Urine Ketones Negative (Negative) Urine Blood 2+ /uL (Negative) Urine Nitrite Negative (Negative) Urine Bilirubin Negative (Negative) Urine Urobilinogen Normal mg/dL (Negative) Urine Leukocyte Esterase Negative /uL (Negative) Urine RBC 2 /hpf (0 - 4) Urine Microscopic WBC 2 /HPF (0-5) Urine Squamous Epithelial Cells Few /hpf (<5) Urine Bacteria None seen /hpf (None Seen) Urine Mucus Few (None Seen) Urine Glucose 3+ mg/dL (Normal) Urine Test Negative (Negative) Hemoglobin A1c 5.4 % A1C (<5.7) Lactic Acid Level 1.9 mmol/L (0.4-2.0) Magnesium Level 2.2 mg/dL (1.6-2.6) Lipase 78 U/L (12-53) Other Laboratory Tests 07/11/24 05:19 Brief Hx & Hospital Course: History of Present Illness The patient is a 43-year-old female who denies past medical history presented to [facility] ED for evaluation of syncopal episode. Patient reports symptoms progressively get worse with diffuse abdominal pain, nausea, diarrhea, getting worse that prompted this visit. Patient is a poor historian and a [place] speaker.Per son, who is translating on patient's behalf, patient is stated to have had yellow diarrhea for one-week and remaining GI symptoms for the past few days, with most recent onset taking place, while at a restaurant, this afternoon. She then had a syncopal episode that was witnessed by family after going home, when she stood up and sat back down in her seat. Patient was seen and evaluated in the ED, laboratory data shows WBC 2.6, hemoglobin 7.7, hematocrit 26.1, platelets 188, sodium 141, potassium 3.3, BUN 12, creatinine 0.87, glucose 208, hemoglobin A1c 5.4, lipase 78, troponin < 3. Please see medication orders section in the computer. On my assessment, patient denied chest pain, no headache, no dizziness, no diaphoresis, no shortness of breath, no nausea or vomiting at this moment, no fever, no chills. Patient was admitted for further evaluation and medical management. Past Medical History: Esophagitis, gastritis Past Surgical History: Denies all surgeries Family History: Reviewed, noncontributory to the management of this case. Past Social History:The patient lives at home, denies smoking, alcohol or illicit drugs abuse. Brief Hospital Course Patient is a 43-year-old female who was actually seen a H in October of 2023 with intractable nausea and vomiting. she had an EGD that revealed sliding- type hiatal hernia with slightly irregular squamocolumnar junction minimal grade a erosive esophagitis and gastritis. Patient was discharged home in a stable state. Patient now presents to the ED yesterday with a complaint of diarrhea of one-week duration followed by diffuse abdominal pain nausea, dizziness that happened a day prior to presenting to the ED. patient describes diarrhea watery nonbloody nonmucous like yellow. And she has a about 5-6 bowel movements a day. She denied any recent contact with a sick person or any viral infection. However patient admits to eating outside half of the time. She denied any weight loss any dysphagia. In the ED initial blood work revealed hemoglobin of 7.7 ( Previous record showed 12.2), Iron: 13.4, Ferritin:2.6. CT abdomen unremarkable other than prominent uterus measuring 11.5 by 6.4 x 7.7 cm. The next day, her hemoglobin had dropped to 6.8. Patient was offered blood transfusion 1 unite but she refused. She was started on IVPB, vitamin B12 and folate. Obgyn was consulted and saw the patient and also recommended blood transfusion and outpatient follow up for endometrial biopsy,option of ocp,mirena iud and endometrial ablation. Still, patient refused the blood transfusion. She said she preferred her body to replenished what she had lost. Patient is not compliant with medical management recommendations and agreed to sign out AMA. She expressed understand of risk and dangers associated with her decision. She was given the AMA form to sign. Diagnoses Severe anemia, microcytic Anemia due? fibroid iron-deficiency anemia Rule out GI bleed menorrhagia --> Hgb:7.7/25.7 --> Ferritin: 2.6 --> TIBC: 411 --> Iron 13 --> Haptoglobin pending --> Reticulocyte pending Anemia due? fibroid --> prominent uterus measuring 11.5 by 6.4 x 7.7 cm --> Consider Wedding Consultant consult Diarrhea, due to below IVVD Gastroenteritis ,infectious etiology likely rule out C.diff and bacterial causes --> rule out C.Diff --> Stool toxin test pending Dizziness and fainting, likely due to anemia and ivvd as above History of Acute abdominal pain due to sliding hiatal hernia History of mild gastritis Case discussed with DR. Hernandez Consults/Reason for consult OBGYN: Menorrhagia Condition at Discharge: Unstable Final Diagnosis/Problems List Severe acute anemia, microcytic Anemia due ? abnormal uterine bleed iron-deficiency anemia Rule out GI bleed menorrhagia Diarrhea, due to below Intravascular volume depleion ( IVVD) Gastroenteritis ,infectious etiology likely rule out C. diff and bacterial causes Dizziness and fainting, likely due to anemia and ivvd as above History of Acute abdominal pain due to sliding hiatal hernia History of mild gastritis Discharge Disposition: AMA Discharge Statement: "Patient was advised to return to the ER or call 911 if any headaches, dizziness, shortness of breath, chest pain, abdominal pain, bleeding, fevers, or worsening of medical condition. Patient was counseled about treatment plan, medications, possible side effects, patientverbalized understanding. All questions were answered to the best of my ability. This discharge took greater then 30 minutes in planning, reviewing documentation, counseling the patient, and discussing with other team members." ASSESSMENT ASSESSMENT Assessment LYNDSAY REINOSO RESIDENT July 11, 2024 17:49
== END 2024-07-11 18:12 | disposition left against medical advice (07) | DRG 249 ==
LOC: EDBD 13:51 → ER 13:53 → OVERFLOW 21:27 → TELE-WESTW 07-09 16:30
PROVIDERS: ADMIT Student in an Organized Health Care Education/Training Program; ATTEND Student in an Organized Health Care Education/Training Program
DX: A09 Infectious gastroenteritis and colitis, unspecified (principal); D25.9 Leiomyoma of uterus, unspecified; E86.9 Volume depletion, unspecified; D50.9 Iron deficiency anemia, unspecified; D72.819 Decreased white blood cell count, unspecified; E87.6 Hypokalemia; N92.0 Excessive and frequent menstruation with regular cycle; Z53.29 Procedure and treatment not carried out because of patient's decision for other reasons
CPT/HCPCS: 36415; 74176; 80048; 80053; 81001; 81025; 82728; 83010; 83036; 83540; 83550; 83605; 83615; 83690; 83735; 84484; 85014; 85018; 85025; 85045; 85048; 86850; 86900; 86901; 86920; 87040; 87493; 96361; 96374; 99291; G0378; J1756; J2405; J2470; J3490